=== PATIENT | female | born 1995 | race Caucasian/White ===

== ENCOUNTER 2019-05-18 20:37 | Emergency (ER) | payer BC, SELFPAY ==
[2019-05-18 20:41] VITALS: BP 127/78; PULSE 86; RESP 16; TEMP 37.2; O2SAT 100; BMI 17.2
[2019-05-18 21:16] LABS: Basophils % 0.3 %; Eosinophils # 0.1 10^3/uL (0.0-0.8); Eosinophils % 1.2 %; Hemoglobin 11.3 g/dL (11.5-15.3); Lymphocytes # 2.6 10^3/uL (0.8-4.8); Lymphocytes % 44.5 %; Mean Corpuscular HGB Conc 33.2 g/dL (30.0-36.0); Mean Corpuscular Hemoglobin 30.7 pg (28.0-34.0); Mean Corpuscular Volume 92.4 fL (81-99); Mean Platelet Volume 9.6 fL (7.4-10.4); Monocytes # 0.4 10^3/uL (0.2-0.9); Monocytes % 7.4 %; Neutrophils # 2.7 10^3/uL (1.8-7.7); Neutrophils % 46.6 %; Nucleated Red Blood Cells % 0 %; Platelet Count 226 10^3/cmm (130-400); Red Blood Count 3.68 10^6/uL (4.1-5.3); Red Cell Distribution Width 11.8 % (12.1-15.1); White Blood Count 5.8 10^3/uL (4.0-10.0)
[2019-05-18 21:32] LABS: Alanine Aminotransferase 9 U/L (0-33); Albumin Level 4.7 g/dL (3.5-5.2); Alkaline Phosphatase 52 IU/L (35-105); Anion Gap 12.9 (5-19); Aspartate Amino Transferase 15 U/L (0-32); Blood Urea Nitrogen 8 mg/dL (6-20); Calcium 9.7 mg/dL (8.5-10.5); Carbon Dioxide 26 mmol/L (22-29); Chloride 102 mmol/L (98-107); Globulin 2.3 g/dL (1.3-4.6); Glomerular Filtration Rate 102.8 mL/min (90-130); Glucose 106 mg/dL (74-109); Lipase 20 U/L (13-60); Potassium 3.9 mmol/L (3.5-5.1); Sodium 137 mmol/L (136-145); Total Bilirubin 0.3 mg/dL (0.15-1.2)
[2019-05-18 22:40] LABS: HCG Qualitative Urine. Negative (Negative)
--- NOTE | 2019-05-18 23:08 | CTR_ITS ---
PROCEDURE INFORMATION: Exam: CT Abdomen And Pelvis With Contrast Exam date and time: 05/18/2019 11:51 PM Age: 24 years old Clinical indication: Abdominal pain; Localized; Left lower quadrant (llq); Additional info: Left lower quad pain TECHNIQUE: Imaging protocol: Computed tomography of the abdomen and pelvis with intravenous contrast. Sagittal and coronal reformatted images were created and reviewed. Total DLP: 491.19 mGy-cm Radiation optimization: All CT scans at this facility use at least one of these dose optimization techniques: automated exposure control; mA and/or kV adjustment per patient size (includes targeted exams where dose is matched to clinical indication); or iterative reconstruction. Contrast material: OMNI 300; Contrast volume: 75 ml; Contrast route: 20G; COMPARISON: US pelvic with transvaginal 05/05/2019 3:22 PM FINDINGS: Lungs: Visualized lungs are clear. Pleural space: No pleural effusion. Heart: Visualized portions of the heart are unremarkable. Liver: Periportal edema. No focal hepatic mass. Gallbladder and bile ducts: The gallbladder is unremarkable. No biliary ductal dilatation. Pancreas: The pancreas is unremarkable. No pancreatic ductal dilatation. Spleen: The spleen is unremarkable. Adrenals: The right and left adrenal glands are unremarkable. Kidneys and ureters: The right and left kidneys are unremarkable. The distal right and left ureters are obscured by adjacent bowel loops and soft tissue structures. The visualized portions of the ureters are unremarkable. Stomach and bowel: Increased fecal content in the colon. No acute abnormality in the small bowel. Appendix: Appendix not definitely visualized. No inflammatory changes in the pericecal region however. Intraperitoneal space: No free intraperitoneal air. No ascites. No loculated fluid collections to suggest an abscess. Vasculature: No evidence for aortic aneurysm or aortic dissection. Lymph nodes: No lymphadenopathy. Bladder: Unremarkable as visualized. Reproductive: There is an IUD in the endometrium of the uterus. Dominant follicle in the right ovary measuring 1.8 x 1.6 cm. Multiple subcentimeter follicles in the left ovary. Bones/joints: Unremarkable. No acute fracture. Soft tissues: Unremarkable. CT/CT abdomen pelvis w con* [id number] IMPRESSION: 1. Periportal edema. Differential diagnosis includes systemic volume overload, passive hepatic congestion, and acute hepatitis. Recommend clinical correlation. 2. Dominant follicle in the right ovary. 3. Incidental/nonacute findings are listed in the report. Radiation Dose CTDIVOL = (mGy): DLP = 491.19 (mGy-cm)
--- NOTE | 2019-05-18 23:09 | W.ED.ABDPA2 ---
HPI - Abdominal Pain General: Chief Complaint: Abdominal Pain Stated Complaint: ABCESS LLQ Time Seen by Provider: 05/18/19 23:02 History of Present Illness: HPI narrative: Patient presents with left lower quadrant pain. Patient states that she has a history of celiac disease and endometriosis. Patient is very small framed. Abdomen she reports is tender to the left lower quadrant and patient is concerned that she may have ruptured her bowel. Patient looks chronically ill. Patient looks and mild pain at rest. Location: LLQ Review of Systems General: Reports: 10 or more systems reviewed and unremarkable except in HPI and below GI: Reports: abdominal pain (LLQ) PFS ED PFSH: Statuses (acute, chronic, etc) shown below reflect problem list status as previously entered and may not be historically accurate Medical History (Updated 05/19/19 @ 00:47 by DAVID Paniagua) Arrhythmia (Acute) Episodes of tachycardia Celiac disease (Acute) Surgical History S/P laparoscopy (Acute 12/27/18) Laparoscopy with cautery of ovarian endometriosis. Diagnosis: Endometrioma of right ovary, Lower abdominal/pelvic pain. Performed by Dr. Farshad Ness at [facility] and [place], [place]. Social History (Updated 05/17/19 @ 13:22 by Saskia Wood LPN) Smoking and tobacco status: never smoked Quit status (tobacco): has quit using tobacco Year quit tobacco: 2016 Second hand smoke exposure: No Smoking risk assessment/counseling performed?: No Alcohol intake: current Alcohol intake frequency: holidays/special occasions only Female Reproductive History: Para: 2 Spontaneous abortions: Yes Physical Exam Const: COMMON NORMALS: no apparent distress and oriented x3 GENERAL APPEARANCE: cooperative HENMT: COMMON NORMALS: normocephalic, external ears normal, EAC's normal, TM's normal bilaterally and external nose normal HEAD & SCALP: normal to inspection and normocephalic FACE & SINUS: normal facial exam NOSE: external nose normal GENERAL EAR: hearing not grossly impaired EXTERNAL EAR: Yes external ears normal EXTERNAL AUDITORY CANAL: EAC's normal TYMPANIC MEMBRANE: TM's normal bilaterally MOUTH: oral and palatal mucosa normal THROAT: posterior oropharynx normal Eye: COMMON NORMALS: PERRL and EOMs intact bilaterally PUPIL: Yes PERRL Neck/C-Spine: COMMON NORMALS: full ROM and no lymphadenopathy Lymph: LYMPHATIC: no lymphedema noted Chest: COMMONS NORMALS: inspection of chest normal and palpation of chest normal Resp: COMMON NORMALS: normal respiratory effort and clear to auscultation bilaterally AUSCULTATION: clear to auscultation bilaterally Cardio: COMMON NORMALS: regular rate and regular rhythm RATE: regular rate RHYTHM: regular rhythm GI: COMMON NORMALS: soft to palpation PALPATION: Yes soft and Yes tender Details: LLQ : COMMON NORMALS: Yes no CVA tenderness BLADDER/KIDNEY EXAM: Yes no CVA tenderness Back/Pelvis: COMMON NORMALS: no CVA tenderness and thoracic and lumbar spine normal to inspection Extremity: COMMON NORMALS: normal to inspection GENERAL: No edema Neuro: COMMON NORMALS: oriented x3, moves all extremities and no focal motor deficits Psych: COMMON NORMALS: mental status grossly normal and cooperative Skin: COMMON NORMALS: no rashes or lesions noted GENERAL SKIN EXAM: no rashes or lesions noted Course Vital Signs: Vital signs: Vital Signs Temperature 98.9 F 05/18/19 20:41 Pulse Rate 76 05/18/19 23:15 Respiratory Rate 14 05/19/19 00:23 Blood Pressure 91/54 05/18/19 23:15 Pulse Oximetry 100 05/19/19 00:23 MDM - Abdominal Pain MDM Narrative: Medical decision making narrative: Patient comes in today with complaints of abdominal pain and mass to the left lower quadrant. On exam we note abdomen is tender to the left lower quadrant that has a palpable bowel abnormality. Patient does react that it is very tender. Vital signs are stable. Differential diagnosis includes bowel obstruction, bowel perforation, endometriosis, gastroenteritis, colitis, diverticulitis. CT scan of the abdomen and pelvis noted no bowel obstruction or bowel perforation. No mass or other abnormality was also noted. Laboratory values were were normal. Reviewed exam with patient recommended treatment for constipation and follow-up with primary care for further treatment. Patient reports understanding. Lab Data: Labs: Lab Results 05/18/19 05/18/19 05/18/19 Range/Units 21:02 21:02 22:28 WBC 5.8 (4.0-10.0) 10^3/ uL RBC 3.68 L (4.1-5.3) 10^6/u L Hgb 11.3 L (11.5-15.3) g/dL Hct 34.0 L (37.0-47.0) % MCV 92.4 (81-99) fL MCH 30.7 (28.0-34.0) pg MCHC 33.2 (30.0-36.0) g/dL RDW 11.8 L (12.1-15.1) % Plt Count 226 (130-400) 10^3/c mm MPV 9.6 (7.4-10.4) fL Neut % (Auto) 46.6 % Lymph % (Auto) 44.5 % [place] % (Auto) 7.4 % Eos % (Auto) 1.2 % Baso % (Auto) 0.3 % Neut # (Auto) 2.7 (1.8-7.7) 10^3/u L Lymph # (Auto) 2.6 (0.8-4.8) 10^3/u L [place] # (Auto) 0.4 (0.2-0.9) 10^3/u L Eos # (Auto) 0.1 (0.0-0.8) 10^3/u L Baso # (Auto) 0.0 (0.0-0.1) 10^3/u L Nucleated RBC % (a uto) 0 % Nucleated RBCs # 0.0 /100WBC Sodium 137 (136-145) mmol/L Potassium 3.9 (3.5-5.1) mmol/L Chloride 102 (98-107) mmol/L Carbon Dioxide 26 (22-29) mmol/L Anion Gap 12.9 (5-19) BUN 8 (6-20) mg/dL Creatinine 0.7 (0.5-0.9) mg/dL GFR Calculation 102.8 (90-130) mL/min Glucose 106 (74-109) mg/dL Calcium 9.7 (8.5-10.5) mg/dL Total Bilirubin 0.3 (0.15-1.2) mg/dL AST 15 (0-32) U/L ALT 9 (0-33) U/L Alkaline Phosphata se 52 (35-105) IU/L Total Protein 7.0 (6.6-8.7) g/dL Albumin 4.7 (3.5-5.2) g/dL Globulin 2.3 (1.3-4.6) g/dL Lipase 20 (13-60) U/L HCG, Qual Negative (Negative) Urine Color (Yellow) Urine Appearance (CLEAR) Urine pH (5-7) Ur Specific Gravit y (1.005-1.030) Urine Protein (Negative) Urine Glucose (UA) (Normal) Urine Ketones (Negative) Urine Occult Blood (Negative) Urine Nitrate (Negative) Urine Bilirubin (NEGATIVE) Urine Urobilinogen (Negative) mg/dL Ur Leukocyte Margaret ase (Negative) Urine RBC (0-2) /hpf Urine WBC (0-5) /hpf Ur Squamous Epith Cells (0-5) Urine Bacteria (NONE) 05/18/19 Range/Units 22:28 WBC (4.0-10.0) 10^3/ uL RBC (4.1-5.3) 10^6/u L Hgb (11.5-15.3) g/dL Hct (37.0-47.0) % MCV (81-99) fL MCH (28.0-34.0) pg MCHC (30.0-36.0) g/dL RDW (12.1-15.1) % Plt Count (130-400) 10^3/c mm MPV (7.4-10.4) fL Neut % (Auto) % Lymph % (Auto) % [place] % (Auto) % Eos % (Auto) % Baso % (Auto) % Neut # (Auto) (1.8-7.7) 10^3/u L Lymph # (Auto) (0.8-4.8) 10^3/u L [place] # (Auto) (0.2-0.9) 10^3/u L Eos # (Auto) (0.0-0.8) 10^3/u L Baso # (Auto) (0.0-0.1) 10^3/u L Nucleated RBC % (a uto) % Nucleated RBCs # /100WBC Sodium (136-145) mmol/L Potassium (3.5-5.1) mmol/L Chloride (98-107) mmol/L Carbon Dioxide (22-29) mmol/L Anion Gap (5-19) BUN (6-20) mg/dL Creatinine (0.5-0.9) mg/dL GFR Calculation (90-130) mL/min Glucose (74-109) mg/dL Calcium (8.5-10.5) mg/dL Total Bilirubin (0.15-1.2) mg/dL AST (0-32) U/L ALT (0-33) U/L Alkaline Phosphata se (35-105) IU/L Total Protein (6.6-8.7) g/dL Albumin (3.5-5.2) g/dL Globulin (1.3-4.6) g/dL Lipase (13-60) U/L HCG, Qual (Negative) Urine Color Yellow (Yellow) Urine Appearance Hazy A (CLEAR) Urine pH 6.5 (5-7) Ur Specific Gravit y 1.010 (1.005-1.030) Urine Protein Neg (Negative) Urine Glucose (UA) Norm (Normal) Urine Ketones Negative (Negative) Urine Occult Blood Neg (Negative) Urine Nitrate Negative (Negative) Urine Bilirubin Neg (NEGATIVE) Urine Urobilinogen Norm (Negative) mg/dL Ur Leukocyte Margaret ase Negative (Negative) Urine RBC None (0-2) /hpf Urine WBC None (0-5) /hpf Ur Squamous Epith Cells 40-55 H (0-5) Urine Bacteria 1+ H (NONE) Discharge Plan Discharge Patient Disposition: Home, Self-Care Clinical Impression: Endometriosis of ovary Abdominal pain Qualifiers: Abdominal location: left lower quadrant Qualified Code(s): R10.32 - Left lower quadrant pain Constipation Qualifiers: Constipation type: unspecified constipation type Qualified Code(s): K59.00 - Constipation, unspecified Condition: Stable Prescriptions: New Miralax 17 gram powder in packet 17 gm PO BID Qty: 30 RF: 0 No Action naproxen sodium [Aleve] 220 mg capsule 220 mg PO QDAY PRNRF: 0 lorazepam 0.5 mg tablet 0.5 mg PO QDAY PRNRF: 0 hydrocodone-acetaminophen [[place]] 5-325 mg tablet 1 tab PO Q8H PRN (Reason: pain) 30 Days Qty: 60 RF: 0 amitriptyline 25 mg tablet 25 mg PO QDAY 30 Days Qty: 30 RF: 0 lactulose 10 gram packet 20 gm PO DAILY PRN (Reason: constipation) 30 Days Qty: 15 RF: 0 Mirena 20 mcg/24 hours (5 yrs) 52 mg intrauterine device 1 device INTRAUTERI ONCE RF: 0 ibuprofen 200 mg tablet 200 mg PO Q6H PRNRF: 0 Discharge Orders: Discharge Order (Routine); Ordered 05/19/19 Ordered By: Alexis Nunes Referrals: Leyla Cooper [Family Provider] - Discharge Diet: Usual diet Discharge Activity: Increase activity as tolerated Patient Instructions: Abdominal Pain (ED) Activity Restrictions/Additional Instructions: Drink plenty of fluids Activity as tolerated Healthy diet Follow-up with primary care for further evaluation and treatment Coding Level of Care Code ED 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
[2019-05-18 23:15] VITALS: BP 91/54; PULSE 76; RESP 14; O2SAT 100
[2019-05-18] MEDS: sodium chloride 0.9% 500 ML 999 ML IV (23:20)
[2019-05-19] MEDS: iohexol 300 mg/mL 100 mL Btl IV (00:15)
[2019-05-19 00:22] LABS: Urine Color Yellow (Yellow)
[2019-05-19 00:23] VITALS: RESP 14; O2SAT 100
[2019-05-19 00:23] LABS: Bilirubin Urine Neg (NEGATIVE); Blood Urine Neg (Negative); Glucose Urine UA Norm (Normal); Ketones Urine Negative (Negative); Leukocyte Esterase Urine Negative (Negative); Nitrate Urine Negative (Negative); Protein Urine Neg (Negative); Urine Appearance Hazy (CLEAR); Urobilinogen Urine Norm (Negative); pH Urine 6.5 (5-7)
[2019-05-19] MEDS: fentaNYL 50 mcg/mL INJ 2mL IVP (00:23)
[2019-05-19] MEDS: ketorolac 30 mg/mL INJ 15 MG IVP (00:25)
[2019-05-19 00:50] LABS: Add Urine Culture? No; Bacteria Urine 1+; Squamous Epithelial Cell Urine 40-55 (0-5)
[2019-05-19 00:59] VITALS: BP 95/57; PULSE 68; RESP 18; O2SAT 98
== END 2019-05-19 01:00 | disposition home or self-care (01) ==
PROVIDERS: Emergency Medicine; Emergency Provider Nurse Practitioner Family; Family Provider Registered Nurse
DX: N80.1 Endometriosis of ovary (principal); K59.00 Constipation, unspecified; Z87.891 Personal history of nicotine dependence
CPT/HCPCS: 74177; 80053; 81001; 81025; 83690; 85025; 96360; 96374; 96375; 99283; 99284; J1885; J3010; J7040; Q9967

== ENCOUNTER 2019-06-06 09:02 | Observation (INO) | payer BC, SELFPAY ==
[2019-06-02 12:07] VITALS: BMI 17.6
--- NOTE | 2019-06-02 12:30 | ANES.PREANE2 ---
Pre-Anesthetic Assessment Pre-Anesthetic Assessment: Height/Weight: Height 1.68 m Weight 49.442 kg Preop Diagnosis: Endometriosis, Dysmenorrhea, Left lower quadrant pain Proposed Procedure: Operation Date: 06/06/19 09:45 Proposed Procedures p Laparoscopic Assist Vaginal Hystectomy 92335 N80.1 N94.6(Not Applicable) - Farshad Ness MD s Laparoscopic Salpingo Oophorectomy(Not Applicable) - Farshad Ness MD Social: Social History: No alcohol and No tobacco Exam: Pre-Anes Outpt Exam: alert, oriented x 3, clear to auscultation bilaterally and regular rate & rhythm Airway: Submandibular: WNL Cervical ROM: WNL MP: 2 Dentition: Other (teeth ok) History/ROS: No significant history except as noted Pulmonary: Pulmonary: None reported CV/HEM: CV/HEM: None reported : : None reported Hepatic: Hepatic: None reported GI: GI: GERD (occ) Metabolic: Metabolic: None reported Musc/skel: Musc/skel: None reported Neuropsych: Neuropsych: Anxiety and Depression Anesthetic Plan: ASA status: 2 Anesthesia: Anesthesia Evaluation (PONV) and General Risk of > 500 ml blood loss (7ml/kg in children): No PFSH Anesthesia PFSH: Medical History Arrhythmia Episodes of tachycardia Celiac disease Low bone density Surgical History S/P laparoscopy (12/27/18) Laparoscopy with cautery of ovarian endometriosis. Diagnosis: Endometrioma of right ovary, Lower abdominal/pelvic pain. Performed by Dr. Farshad Ness at [facility] and [place], [place]. Family History Father Hypertension Heart disease Hypercholesteremia Diabetes Brother Heart disease Grandmother Heart disease maternal Mother Uterine cancer diagnosed at age 60 Social History (Updated 06/02/19 @ 10:05 by Farshad Ness MD) Smoking and tobacco status: former smoker Quit status (tobacco): has quit using tobacco Year quit tobacco: 2015 Second hand smoke exposure: No Smoking risk assessment/counseling performed?: No Alcohol intake: current Alcohol intake frequency: holidays/special occasions only Substance/Drug Use: never Female Reproductive History: Para: 2 Spontaneous abortions: Yes Data Anesthesia Cardiac Studies: No Data to Display
[2019-06-02 12:32] LABS: Basophils % 0.4 %; Eosinophils # 0.1 10^3/uL (0.0-0.8); Hematocrit 34.5 % (37.0-47.0); Hemoglobin 11.4 g/dL (11.5-15.3); Lymphocytes # 1.7 10^3/uL (0.8-4.8); Lymphocytes % 32.5 %; Mean Corpuscular Hemoglobin 30.6 pg (28.0-34.0); Mean Corpuscular Volume 92.5 fL (81-99); Mean Platelet Volume 9.3 fL (7.4-10.4); Monocytes # 0.3 10^3/uL (0.2-0.9); Monocytes % 6.1 %; Neutrophils # 3.2 10^3/uL (1.8-7.7); Neutrophils % 59.8 %; Nucleated Red Blood Cells % 0 %; Platelet Count 250 10^3/cmm (130-400); Red Blood Count 3.73 10^6/uL (4.1-5.3); Red Cell Distribution Width 11.7 % (12.1-15.1); White Blood Count 5.3 10^3/uL (4.0-10.0)
[2019-06-06] VITALS (22 sets, daily range): BP systolic 92–133; BP diastolic 45–110; PULSE 64–140; RESP 16–25; TEMP 36.6–37.7; O2SAT 94–100; BMI 17.6
[2019-06-06] MEDS: phenazopyridine 100 mg Tablet 200 MG PO ×3 (06:38→21:02)
[2019-06-06] MEDS: scopolamine 1.5 Patch 1 PATCH TRANSDERMA (06:41)
[2019-06-06] MEDS: sodium chloride 0.9% 1,000 ML 30 ML IV (06:43)
[2019-06-06] MEDS: ketorolac 30 mg/mL INJ IVP ×2 (06:43→12:19)
--- NOTE | 2019-06-06 06:43 | P.ANESUD_ITS ---
Pre-Anesthetic Update Pre-Anesthetic Assessment: Date of Surgery/Procedure: 06/06/19 Preop Sarai gnosis: Endometriosis, Dysmenorrhea, Left lower quadrant pain Proposed Procedure: Operation Date: 06/06/19 07:00 Proposed Procedures p Laparoscopic Assist Vaginal Hystectomy 02383 N80.1 N94.6(Not Applicable) - Farshad Ness MD s Laparoscopic Salpingo Oophorectomy(Not Applicable) - Farshad Ness MD Any changes to Pre-Anesthetic Assessment?: No Last Intake: NPO > 8 hra Exam: Pre-Anes Outpt Exam: alert, oriented x 3, clear to auscultation bilaterally and regular rate & rhythm Cardiac Studies: No Data to Display
--- NOTE | 2019-06-06 06:47 | W.PM.OPSUD ---
Surgery/Procedure H&P Update DATE OF PROCEDURE: June 06, 2019 DATE H&P PERFORMED: 06/02/19 H&P UPDATE INFORMATION: H&P completed within last 30 days, No changes to prior documentation and H&P is in [facility] EMR on date indicated PREOP DIAGNOSIS: Endometriosis, Dysmenorrhea, Left lower quadrant pain PLANNED PROCEDURE: Operation Date: 06/06/19 07:00 Proposed Procedures p Laparoscopic Assist Vaginal Hystectomy 69533 N80.1 N94.6(Not Applicable) - Farshad Ness MD s Laparoscopic Salpingo Oophorectomy(Not Applicable) - Farshad Ness MD
[2019-06-06 06:56] LABS: OR HCG Qualitative Urine Negative (Negative)
[2019-06-06] MEDS: vasopressin 20 unit/mL INJ INJECTION (08:07)
[2019-06-06] MEDS: ondansetron 2 mg/ML SDV 2 mL 4 MG IVP (09:16)
[2019-06-06] MEDS: fentaNYL 50 mcg/mL INJ 2mL IVP ×2 (09:16→09:21)
--- NOTE | 2019-06-06 09:17 | PM.OP ---
Operative Report Date of procedure: June 06, 2019 Pre-op Diagnosis: Endometriosis, Dysmenorrhea, Left lower quadrant pain Post-op Diagnosis: Pelvic and ovarian endometriosis, Dysmenorrhea, Left lower quadrant pain, Enterocele Procedure Done: Laparoscopic assisted vaginal hysterectomy with left salpingo-oophorectomy and right salpingectomy, Cauterization of ovarian endometriosis of the right ovary, Parson's culdoplasty Pathology: Uterus, cervix, left tube and ovary, right fallopian tube Surgeon: Farshad Ness Geography Department Chair: Mike Murrell Geography Department Chair: Leonardo Trejo MS 3 Anesthesia: General Estimated blood loss (mL): 20 IV fluids (mL): 1,500 Complications: None Findings: Second-degree uterine prolapse. Brown, powder burn lesions consistent with endometriosis of the left posterior uterus, left ovary, right ovary, and left posterior cul-de-sac. Normal-appearing fallopian tube. Enterocele identified. Brief History: Patient is a 24-year-old white female 4, para 2-0-2-2 with an LMP of 04/03/2019 who is currently using Mirena IUD for contraception. Patient has had problems with lower abdominal pain which had not responded to hormonal control. She had a laparoscopy in December 2018 which identified ovarian endometrioma. She was then treated with Depo-Lupron and received 1 injection. She had worsening of her pain at approximately 2 weeks after the initial injection which is not uncommon. She did not continue the Depo-Lupron due to problems with insurance coverage of the medication. Because of continued pain afterwards, she has decided proceed with hysterectomy. Removal of 1 or both ovaries was discussed and since most of her pain was on the left side she wanted to go ahead and have the left ovary removed and leave the right ovary if possible. Procedure: The patient was taken to the operating room where general anesthesia was obtained. She was prepped and draped in the usual sterile fashion in the dorsal supine position with legs in Duong style stirrups. Sequential compression boots were placed prior to starting the case. Fung catheter was inserted and exam under anesthesia was performed. She was found to have second-degree uterine prolapse. Weighted speculum was placed in the vagina and the cervix was grasped with a single-tooth tenaculum. A Hulka was placed. The infraumbilical region was injected with 2% lidocaine with epinephrine. Skin incision was made with a knife in the lower edge of the navel and a size 10 trocar and sheath were inserted under direct visualization using an Optiview type technique. Trocar was removed and replaced with just the laparoscope confirming intra-abdominal placement. The anterior abdominal wall was inspected and noted to be free of adhesions. In the right and left lower quadrants, lateral to the inferior epigastric vessels, the skin was injected with 2% lidocaine with epinephrine. Skin incisions were made with the knife and a 5 mm trocar and sheath were inserted under direct visualization at each site. The pelvis was inspected. Brown powder burn lesions consistent with endometriosis were identified on the left posterior surface of the uterus. Powder burn lesions were also noted on the right ovary and left ovaries. Also were present within the left posterior cul-de-sac. She had a normal-appearing appendix. Using the Voyant sealing device, the left infundibulopelvic ligament was sealed and cut. The underlying mesovarium mesosalpinx was sealed and cut until the round ligament was reached.. The round ligament was sealed and cut and the dissection carried along the lateral aspect of the uterus to approximately the level of the internal os. The broad ligament was and the dissection carried over the lower uterine segment. Using the Voyant sealing device, the right mesosalpinx was sealed and cut and the dissection carried along the underlying mesosalpinx until the corner of the uterus was reached. The right utero-ovarian ligament was sealed and cut.. The round ligament was sealed and cut and the dissection carried along the lateral aspect of the uterus to approximately the level of the internal os. The broad ligament was and the dissection carried over the lower uterine segment to meet with the dissection from the contralateral side. The dissection areas were noted to be hemostatic. The abdomen was deflated. The patient's legs were placed in the high lithotomy position. The Hulka was removed and a weighted speculum placed in the vagina. The cervix was regrasped with single-tooth tenaculums. The cervix was circumferentially injected with dilute Pitressin solution. A circumferential incision was made with the knife around the cervix. Bladder was bluntly dissected off of the lower uterine segment. Posterior cul-de-sac was sharply entered and the peritoneum tagged to the vaginal mucosa in the midline. A long weighted retractor was placed in the posterior cul-de-sac. Patient was noted to have an enterocele. The uterosacral ligaments were clamped, cut, and suture ligated with 0 Vicryl suture bilaterally. The cardinal ligaments were clamped, cut, and suture ligated with 0 Vicryl suture bilaterally. The bladder was sharply dissected away from the uterus and the anterior cul-de-sac entered. A long right angle retractor was used to elevate the bladder away from the uterus. The remaining portion of the broad ligament was serially clamped, cut, and suture ligated with 0 Vicryl suture until the uterus was completely excised. The pedicles were inspected and noted to be hemostatic. Posterior edge of the vaginal cuff was oversewn with 0 Vicryl suture in a running locking fashion incorporating the peritoneum to the vaginal mucosa. This extended from the 3:00 position to the 9:00 position posteriorly. Due to the enterocele, decision was made to perform a modified Parson's culdoplasty. Using 0 Vicryl suture, stitch was placed through the posterior cuff at approximately the 5 o'clock position. The left uterosacral ligament was incorporated into the stitch and the posterior peritoneum was picked up in a strafing fashion until the right uterosacral ligament was reached and incorporated into the stitch. Stitch was brought back out through the posterior cuff at approximately the 7 o'clock position. The stitch was then held. The vaginal cuff was closed in a vertical fashion using 0 Vicryl suture in an interrupted [id number] fashion. The uterosacral ligaments and cardinal ligaments were tied in the midline using previously held sutures. The cuff was noted to be hemostatic. The culdoplasty stitch was then tied which elevated the cuff well. The abdomen was reinflated and and the pelvis thoroughly inspected. Patient was noted to have powder burn lesions of the right ovary which were cauterized using monopolar cautery. No areas of residual endometriosis were noted. The areas of dissection were noted to be hemostatic. They were inspected under normal and low pressures. The abdomen was deflated and the ports removed. The 5 mm sites were closed with single stitches of 4-0 Vicryl suture. The umbilical site was closed with a deep stitch of 4-0 Vicryl suture followed by subcuticular closure of the skin. Skin glue was applied to the incision sites. Patient tolerated the procedures well. Sponge needle and instrument counts were correct. DRAINS: Fung catheter POSTOPERATIVE STATUS: The patient was transferred to the recovery room in satisfactory condition.
[2019-06-06] MEDS: morphine 4 mg/mL SDV 1 mL IVP ×2 (10:16→12:18)
[2019-06-06] MEDS: HYDROcodone-acetaminophen 5-325 mg Tablet PO (11:28)
[2019-06-06] MEDS: dextrose 5%-lactated ringers 1,000 ML 125 ML IV (12:09)
[2019-06-06] MEDS: oxyCODONE 5 mg IR Tab/Cap PO (15:11)
[2019-06-06] MEDS: oxyCODONE-APAP 5-325 mg Tablet PO ×2 (16:46→21:02)
[2019-06-06] MEDS: zolpidem 5 mg Tablet 10 MG PO (21:48)
[2019-06-07 01:12] VITALS: RESP 16
[2019-06-07] MEDS: oxyCODONE-APAP 5-325 mg Tablet PO ×3 (01:12→09:43)
[2019-06-07 04:00] VITALS: BP 93/53; PULSE 66; RESP 15; TEMP 36.7; O2SAT 96
[2019-06-07 05:21] VITALS: RESP 16
[2019-06-07 07:20] LABS: Hematocrit 30.1 % (37.0-47.0); Hemoglobin 9.8 g/dL (11.5-15.3); Mean Corpuscular HGB Conc 32.6 g/dL (30.0-36.0); Mean Corpuscular Hemoglobin 30.5 pg (28.0-34.0); Mean Corpuscular Volume 93.8 fL (81-99); Mean Platelet Volume 9.9 fL (7.4-10.4); Platelet Count 192 10^3/cmm (130-400); Red Blood Count 3.21 10^6/uL (4.1-5.3); Red Cell Distribution Width 11.7 % (12.1-15.1); White Blood Count 8.9 10^3/uL (4.0-10.0)
[2019-06-07] MEDS: docusate sodium 100 mg Capsule PO (08:53)
[2019-06-07] MEDS: phenazopyridine 100 mg Tablet 200 MG PO (08:53)
[2019-06-07 09:43] VITALS: RESP 18
--- NOTE | 2019-06-07 11:02 | P.DS_ITS ---
Discharge Providers Date of Admission: 06/06/19 09:02 Date of Discharge: June 07, 2019 Attending Provider at Admission: Farshad Ness MD Attending Provider at Discharge: Farshad Ness MD Diagnoses at Discharge Discharge Diagnosis (1) Endometriosis of ovary: Status: Acute (2) Dysmenorrhea: Status: Acute (3) Left lower quadrant pain: Status: Acute (4) Vaginal enterocele: Status: Resolved Reason for Visit Reason for Visit: Reason For Visit: Endometriosis dysmenorrhea Hospital Course Hospital Course: Patient is a 24-year-old white female 4, para 2-0-2-2 with an LMP of 04/03/2019 who had been using Mirena for control. She has been having problems with lower abdominal pain which has not responded to hormonal control. She had a laparoscopy in December 2018 which identified endometriosis of her ovaries. She was treated with 1 dose of Depo- Lupron, but did not continue it due to insurance reasons. She was not on the Depo-Lupron long enough to know if it would help or not with the pain. Following this, she is continued to have pain and has now decided to proceed with hysterectomy and would like to leave the right ovary if possible. Patient was admitted for same-day surgery and had a laparoscopic assisted vaginal hysterectomy with left salpingo-oophorectomy, right salpingectomy, destruction of endometriosis of the right ovary, and Parson's culdoplasty. During surgery several areas of endometriosis were identified including endometrial implants of the left posterior uterus, left ovary, right ovary, and left posterior cul-de-sac. She was also found during surgery to have an enterocele. Following surgery she had problems with pain requiring parenteral pain medications. Later in the day she had been switched to hydrocodone which did not adequately control her pain and by the evening was switched to oxycodone. Fung catheter was discontinued in the evening and diet was also advanced. DAY 1 Patient was reporting doing better. She stated that the pain had been better controlled with the Percocet than with the [place] from the prior evening. She was tolerating a regular diet without nausea and vomiting. She was ambulating without lightheadedness or dizziness. She denied any shortness of breath or chest pains. She reported passing flatus. She was urinating without difficult y. PHYSICAL EXAM: See below PLAN Patient was doing well overall and was able to be discharged home. Discharge instructions have been discussed with her. She was to follow-up in the office in 2 and 6 weeks following surgery. Physical Exam Const: COMMON NORMALS: no apparent distress, average body habitus, alert and well nourished GENERAL APPEARANCE: well developed ORIENTATION/CONSCIOUSNESS: Yes oriented to person, Yes oriented to place and Yes oriented to time Resp: COMMON NORMALS: normal respiratory effort and clear to auscultation bilaterally AUSCULTATION: clear to auscultation bilaterally Cardio: COMMON NORMALS: regular rate, regular rhythm, no gallops, no murmurs and no rub RATE: regular rate RHYTHM: regular rhythm GI: COMMON NORMALS: soft to palpation, no hepatosplenomegaly and no masses INSPECTION: Yes incision (Well approximated without erythema noted. Bruising present around the navel.) AUSCULTATION: Yes normoactive bowel sounds PALPATION: Yes soft, Yes tender (Lower abdomen), Yes no hepatosplenomegaly and No hernia : EXTERNAL FEMALE EXAM: No hernia Extremity: COMMON NORMALS: no calf tenderness (Bilaterally) Neuro: SENSORIUM/ORIENTATION: Yes alert, Yes oriented to person, Yes oriented to place and Yes oriented to time Psych: COMMON NORMALS: affect normal MOOD & AFFECT: Yes euthymic mood Urinary Catheter Management^: Fung: Cath Placed During This Visit: yes, but has since been removed by the nurse Reason for Continuing Indwelling Catheter: Required Immobilization for Trauma or Surgery or Anesthesia Urinary Catheter Date of Insertion: 06/06/19 Urinary Catheter Time of Insertion: 07:35 Date Urinary Catheter Removed: 06/06/19 Time Urinary Catheter Discontinued: 22:00 Discharge Data Data Completed and Pending: Completed Studies During Hospitalization Category Date Time Status Pathology: Surgic al [PTH] Routine Pth 06/06/19 09:06 Completed Pending at discharge Category Date Time Status ES surgery / GI i mages Routine Exams 06/06/19 06:17 Taken Labs from last 24 hours 06/07/19 07:00 WBC 8.9 RBC 3.21 L Hgb 9.8 L Hct 30.1 L MCV 93.8 MCH 30.5 MCHC 32.6 RDW 11.7 L Plt Count 192 MPV 9.9 Vitals: Last Vital Signs Temp 98.1 F 06/07/19 04:00 Pulse 66 06/07/19 04:00 Resp 18 06/07/19 09:43 BP 93/53 06/07/19 04:00 Pulse Ox 96 06/07/19 04:00 Discharge Plan Discharge Patient Disposition: Home, Self-Care Condition: Stable Prescriptions: New oxycodone-acetaminophen 5-325 mg Tablet 1 - 2 tab PO Q6H PRN (Reason: Moderate To Severe Pain) Qty: 30 RF: 0 Continued naproxen sodium [Aleve] 220 mg capsule 220 mg PO QDAY MDD 220 PRN (Reason: Pain) RF: 0 lorazepam 0.5 mg tablet 0.5 mg PO QDAY PRN (Reason: Anxiety) RF: 0 amitriptyline 25 mg tablet 25 mg PO QDAY 30 Days Qty: 30 RF: 0 lactulose 10 gram packet 20 gm PO DAILY PRN (Reason: constipation) 30 Days Qty: 15 RF: 0 polyethylene glycol 3350 [Miralax] 17 gram powder in packet 17 gm PO BID Qty: 30 RF: 0 Discontinued hydrocodone-acetaminophen [[place]] 5-325 mg tablet 1 tab PO Q8H PRN (Reason: pain) 30 Days Qty: 60 RF: 0 Mirena 20 mcg/24 hours (5 yrs) 52 mg intrauterine device 1 device INTRAUTERI ONCE RF: 0 ibuprofen 200 mg tablet 200 mg PO Q6H MDD 200 PRN (Reason: Pain) RF: 0 Discharge Orders: Discharge Order (Routine); Ordered 06/07/19 Ordered By: Farshad Ness Referrals: Farshad Ness MD [Physician] - 2 weeks (* Your 2 week follow up appointment is on 06/19/2019 at 11:00am. * Your 6 week follow up appointment is on 07/17/2019 at 11:00am. ) Discharge Diet: Regular Discharge Activity: Limit activity as instructed Patient Instructions: Oxycodone/Acetaminophen (By mouth), Laparoscopically Assisted Vaginal Hysterectomy (DC), OB Discharge Report, OB Laproscopic Surgery - [facility], OB Food/Drug Interaction Guide Activity Restrictions/Additional Instructions: Provide my hysterectomy instructions Discharge Date/Time: 06/07/19 12:21 Discharge Attestations Time Spent in Discharge Care*: less than 30 min Quality Metrics Clinical Quality Measures During this hospital stay, did patient experience: None Coding Level of Care Code Acute Hardware Installation Coordinator for g Fwd Diagnoses Endometriosis of ovary N80.1 Dysmenorrhea N94.6 Left lower quadrant pain R10.32 Vaginal enterocele N81.5
[2019-06-07 11:50] VITALS: BP 95/59; PULSE 62; RESP 18; TEMP 36.7
== END 2019-06-07 12:21 | disposition home or self-care (01) ==
LOC: OBGYN 09:03
PROVIDERS: Admitting Provider Obstetrics & Gynecology; Family Provider Registered Nurse; Visit Provider Obstetrics & Gynecology
PROC: 0UT9FZZ Resection of Uterus, Via Natural or Artificial Opening With Percutaneous Endoscopic Assistance (ICD-10-PCS; CPT 57268; principal; 2019-06-06 07:00)
DX: N80.1 Endometriosis of ovary (principal); N94.6 Dysmenorrhea, unspecified; R10.32 Left lower quadrant pain; N81.5 Vaginal enterocele; Z83.3 Family history of diabetes mellitus; Z82.49 Family history of ischemic heart disease and other diseases of the circulatory system; Z87.891 Personal history of nicotine dependence
CPT/HCPCS: 57268; 58552; 58662; 12345; 36415; 81025; 84703; 85025; 85027; 86850; 86900; 88307; 96361; 96374; 96375; G0378; J0690; J1100; J1885; J2001; J2250; J2270; J2405; J2704; J2710; J3010; J3490; J7030

== ENCOUNTER → 2019-06-19 12:05 | Outpatient (BNVA) | payer BC, SELFPAY | PROVIDERS: Family Provider Registered Nurse; Visit Provider Obstetrics & Gynecology | DX: R30.0 Dysuria (principal) | CPT/HCPCS: 81003; 87086 ==

== ENCOUNTER → 2019-07-26 18:24 | Outpatient (BNVA) | payer BC, SELFPAY | PROVIDERS: Family Provider Registered Nurse; Visit Provider Family Medicine | DX: R05 Cough (principal); R06.02 Shortness of breath; Z20.828 Contact with and (suspected) exposure to other viral communicable diseases | CPT/HCPCS: 87071; 87400; 87635; 87880 ==

== ENCOUNTER → 2019-08-15 13:02 | Outpatient (BNVA) | payer BC, SELFPAY | PROVIDERS: Family Provider Registered Nurse; PCP Family Medicine; Visit Provider Anesthesiology Pain Medicine | DX: M54.16 Radiculopathy, lumbar region (principal); M25.561 Pain in right knee; Z79.891 Long term (current) use of opiate analgesic | CPT/HCPCS: 99204; 99205 ==

== ENCOUNTER 2019-09-12 15:06 | Outpatient (CLI) | payer BC, SELFPAY ==
--- NOTE | 2019-09-12 15:15 | MR_ITS ---
WS: [id number] MRI LUMBAR SPINE NONCONTRAST HISTORY: radicular pain COMPARISON: None available. TECHNIQUE: Sagittal and axial multisequence imaging is submitted. Very slight straightening of the normal lordosis. Posterior alignment is normal. No fractures. Disc s paces are well-maintained. Conus tapers and ends at L1-2 level. Disc spaces and vertebral body heights are well-preserved. Conus terminates normally at L1-2 disc level. L1-L2: Normal. L2-L3: Normal. L3-L4: Normal. L4-L5: Slight posterior broad-based bulging of the disc. Mild contact and narrowing the subarticular recesses. Small amount of fluid in the facet joints bilaterally. Very slight encroachment and narrowi ng of the foramen. L5-S1: Mild broad based disc bulging posteriorly without stenosis. MR/MR lumbar spine wo con* [id number] IMPRESSION: 1. Very mild facet degenerative changes and foraminal narrowing at L4-5 and L5 -S1. 2. No large disc herniations or significant stenosis.
== END 2019-09-12 15:07 | disposition home or self-care (01) ==
LOC: RADSHAW 15:09
PROVIDERS: PCP Family Medicine; Visit Provider Anesthesiology Pain Medicine
DX: M54.16 Radiculopathy, lumbar region (principal)
CPT/HCPCS: 72148

== ENCOUNTER → 2019-09-13 09:23 | Outpatient (BNVA) | payer BC, SELFPAY | PROVIDERS: PCP Family Medicine; Visit Provider Anesthesiology Pain Medicine | DX: M47.816 Spondylosis without myelopathy or radiculopathy, lumbar region (principal); M54.16 Radiculopathy, lumbar region; M25.561 Pain in right knee; M25.562 Pain in left knee; M25.511 Pain in right shoulder; M25.512 Pain in left shoulder; M25.9 Joint disorder, unspecified; M25.50 Pain in unspecified joint; Z79.891 Long term (current) use of opiate analgesic | CPT/HCPCS: 99214 ==

== ENCOUNTER 2022-04-26 16:19 | Emergency (ER) | payer BC, SELFPAY ==
[2022-04-26 16:33] VITALS: BP 113/73; PULSE 104; RESP 16; TEMP 36.8; O2SAT 100
--- NOTE | 2022-04-26 16:39 | CTR_ITS ---
PROCEDURE INFORMATION: Exam: CT Abdomen And Pelvis With Contrast Exam date and time: 04/26/2022 5:22 PM Age: 27 years old Clinical indication: Abdominal pain; Localized; Right lower quadrant (rlq); Prior surgery; Surgery date: 6+ months; Surgery type: Hyster; Additional info: Rlq abdominal pain TECHNIQUE: Imaging protocol: Computed tomography of the abdomen and pelvis with contrast. Radiation optimization: All CT scans at this facility use at least one of these dose optimization techniques: automated exposure control; mA and/or kV adjustment per patient size (includes targeted exams where dose is matched to clinical indication); or iterative reconstruction. Contrast material: OMNI 350; Contrast volume: 100 ml; Contrast route: INTRAVENOUS (IV); COMPARISON: CT abdomen pelvis w con* [id number] 05/19/2019 12:25 AM RADIATION DOSE METRICS: Total DLP (mGy-cm): 344.72 FINDINGS: Liver: Normal. No mass. Gallbladder and bile ducts: Normal. No calcified stones. No ductal dilation. Pancreas: Normal. No ductal dilation. Spleen: Normal. No splenomegaly. Adrenal glands: Normal. No mass. Kidneys and ureters: Normal. No hydronephrosis. Stomach and bowel: There is a large amount of stool in the proximal colon particularly in the cecum and proximal ascending colon. Fecal appearing content is present in the distal small bowel consistent with stasis. Appendix: Appendix not definitely visualized. There are no right lower quadrant inflammatory changes seen. Intraperitoneal space: Unremarkable. No free air. No significant fluid collection. Vasculature: Unremarkable. No abdominal aortic aneurysm. Lymph nodes: Unremarkable. No enlarged lymph nodes. Urinary bladder: Unremarkable as visualized. Reproductive: The uterus is not visualized, consistent with hysterectomy. Bones/joints: Unremarkable. No acute fracture. Soft tissues: Unremarkable. CT/CT abdomen pelvis w con* [id number] IMPRESSION: 1. There is proximal colonic constipation. Fecal appearing content in the distal small bowel is consistent with stasis. 2. Appendix not definitely visualized. There are no right lower quadrant inflammatory changes seen.
--- NOTE | 2022-04-26 16:40 | W.ED.ABDPA2 ---
HPI - Abdominal Pain General: Chief Complaint: Abdominal Pain Stated Complaint: ABD PAIN Time Seen by Provider: 04/26/22 16:24 History of Present Illness: Patient is a 27-year-old female comes to the ED via EMS with abdominal pain. Symptoms started approximately 1 hour ago. She says she was getting up from a sitting position and felt a pop in her right lower quadrant of her abdomen. She now has 10 out of 10 pain in her right lower quadrant. Past surgical history of hysterectomy but patient's appendix and gallbladder still present. Denies any fevers, nausea/vomiting, bladder or bowel symptoms. EMS gave patient 100 MCG's of fentanyl and 4 mg of Zofran while in route. Associated Symptoms: Denies chills, constipation, diarrhea, dysuria, fever(s), hematochezia, hematuria, nausea and vomiting Review of Systems Const: Denies: fever(s), chills or fatigue Eyes: Denies: change in vision or eye discomfort ENMT: Denies: throat pain, odynophagia, nasal discharge or nasal congestion Card: Denies: chest pain, palpitations, edema, swelling of feet/ankles, dyspnea on exertion or orthopnea Resp: Denies: dyspnea, productive cough or non-productive cough GI: Reports: abdominal pain; Denies: nausea, vomiting, diarrhea, constipation or hematochezia : Denies: flank pain, dysuria or hematuria Musc: Denies: neck pain, back pain or extremity swelling Skin/Breast: Denies: rash or new lesions Neuro: Denies: headache(s), numbness in extremities or weakness in extremities PFS ED PFSH: Medical History (Updated 04/26/22 @ 18:23 by BETINA Guillen) Arrhythmia Episodes of tachycardia Celiac disease Low bone density Surgical History History of laparoscopic-assisted vaginal hysterectomy (06/06/19) With LSO and right salpingectomy, cautery endometriosis, Parson's culdoplasty. Dx: Pelvic & ovarian endometriosis, Dysmenorrhea, LLQ pain, Enterocele. Performed by Dr. Ness at [facility]. S/P laparoscopy (12/27/18) With cautery of ovarian endometriosis. Dx: Endometrioma of right ovary, Lower abdominal/pelvic pain. Performed by Dr. Ness at [facility] in [place], [place]. Family History Father Hypertension Heart disease Hypercholesteremia Diabetes Brother Heart disease Grandmother Heart disease maternal Mother Uterine cancer diagnosed at age 60 Social History Smoking and tobacco status: former smoker Quit status (tobacco): has quit using tobacco Year quit tobacco: 2016 Alcohol intake: current Alcohol intake frequency: holidays/special occasions only Female Reproductive History: Para: 2 Spontaneous abortions: Yes Physical Exam Const: COMMON NORMALS: patient oriented x3 and alert GENERAL APPEARANCE: cooperative and other (Patient crying due to pain) HENMT: COMMON NORMALS: normocephalic HEAD & SCALP: normocephalic MOUTH: Normal oral and palatal mucosa present THROAT: posterior oropharynx normal and uvula midline Neck/C-Spine: COMMON NORMALS: supple GENERAL: Yes normal visual inspection Resp: COMMON NORMALS: normal respiratory effort, No retractions, No use of accessory muscles and clear to auscultation bilaterally AUSCULTATION: clear to auscultation bilaterally Cardio: COMMON NORMALS: regular rate, regular rhythm, S1 normal heart sound present, S2 normal heart sound present, No gallops present (Cardio), No clicks present (Cardio), No murmurs present (Cardio) and Peripheral pulses 2+ throughout RATE: regular rate RHYTHM: regular rhythm HEART SOUNDS: S1 normal heart sound present and S2 normal heart sound present PERIPHERAL PULSES: Peripheral pulses 2+ throughout GI: COMMON NORMALS: Normal to inspection, nondistended, normoactive bowel sounds present, Soft to palpation and no masses PALPATION: Yes Soft to palpation and Yes Tenderness to palpation present (GI) Details: RLQ (Positive McBurney's point tenderness) : COMMON NORMALS: Yes no CVA tenderness BLADDER/KIDNEY EXAM: Yes no CVA tenderness Back/Pelvis: COMMON NORMALS: no CVA tenderness Extremity: COMMON NORMALS: normal to inspection Neuro: COMMON NORMALS: patient oriented x3 SENSORIUM/ORIENTATION: Yes alert GAIT: Yes Normal gait present Skin: GENERAL SKIN EXAM: dry skin Course Vital Signs: Vital signs: Vital Signs Temperature 98.2 F 04/26/22 16:33 Pulse Rate 87 04/26/22 18:20 Respiratory Rate 14 04/26/22 18:20 Blood Pressure 115/74 04/26/22 18:20 Pulse Oximetry 98 04/26/22 18:20 Oxygen Delivery Me thod 04/26/22 18:20 MDM - Abdominal Pain Medical Decision Making Patient is a 27-year-old female comes to the ED with right lower quadrant abdominal pain. Past surgical history of hysterectomy. Vitals are stable. Patient appears in some pain and is crying upon exam. She does have some right lower quadrant tenderness to palpation. Rest of exam is benign. Labs ordered and pending. CT of abdomen is ordered and pending as well. Patient case transferred over to [facility] at [address] of the abdomen pelvis showed constipation and no other acute findings. Labs are unremarkable. Patient discharged home with a prescription for senna and told to follow-up with PCP in the next week for reevaluation. Lab Data I reviewed the patient's lab results. 04/26/22 16:40 04/26/22 16:40 Labs/Radiology: Radiology Impressions Abdomen/Pelvis CT 04/26/22 16:39 IMPRESSION: 1. There is proximal colonic constipation. Fecal appearing content in the distal small bowel is consistent with stasis. 2. Appendix not definitely visualized. There are no right lower quadrant inflammatory changes seen. Laboratory Results WBC 10.8 10^3/uL (4.0-10.0) H 04/26/22 16:40 RBC 3.89 10^6/uL (4.1-5.3) L 04/26/22 16:40 Hgb 12.1 g/dL (11.5-15.3) 04/26/22 16:40 Hct 36.9 % (37.0-47.0) L 04/26/22 16:40 MCV 94.9 fl (81-99) 04/26/22 16:40 MCH 31.1 pg (28.0-34.0) 04/26/22 16:40 MCHC 32.8 g/dL (30.0-36.0) 04/26/22 16:40 RDW 13.2 % (12.1-15.1) 04/26/22 16:40 Plt Count 297 10^3/cmm (130-400) 04/26/22 16:40 MPV 9.3 fL (7.4-10.4) 04/26/22 16:40 Neut % (Auto) 62.9 % 04/26/22 16:40 Lymph % (Auto) 30.2 % 04/26/22 16:40 Noble % (Auto) 6.4 % 04/26/22 16:40 Eos % (Auto) 0.0 % 04/26/22 16:40 Baso % (Auto) 0.2 % 04/26/22 16:40 Neut # (Auto) 6.80 10^3/uL (1.8-7.7) 04/26/22 16:40 Lymph # (Auto) 3.3 10^3/uL (0.8-4.8) 04/26/22 16:40 Noble # (Auto) 0.7 10^3/uL (0.2-0.9) 04/26/22 16:40 Eos # (Auto) 0.0 10^3/uL (0.0-0.8) 04/26/22 16:40 Baso # (Auto) 0.0 10^3/uL (0.0-0.1) 04/26/22 16:40 Nucleated RBC % (auto) 0 % 04/26/22 16:40 Nucleated RBCs # 0.0 /100WBC 04/26/22 16:40 Sodium 140 mmol/L (136-145) 04/26/22 16:40 Potassium 3.3 mmol/L (3.5-5.1) L 04/26/22 16:40 Chloride 106 mmol/L (98-107) 04/26/22 16:40 Carbon Dioxide 22 mmol/L (22-29) 04/26/22 16:40 Anion Gap 15.3 (5-19) 04/26/22 16:40 BUN 17 mg/dL (6-20) 04/26/22 16:40 Creatinine 0.6 mg/dL (0.5-0.9) 04/26/22 16:40 GFR Calculation 119.9 mL/min (90-130) 04/26/22 16:40 Glucose 52 mg/dL (65-115) L 04/26/22 16:40 Calculated Osmolality 289 mOsm/kg (285-295) 04/26/22 16:40 Calcium 9.2 mg/dL (8.5-10.5) 04/26/22 16:40 Total Bilirubin 0.2 mg/dL (0.15-1.2) 04/26/22 16:40 AST 18 U/L (0-32) 04/26/22 16:40 ALT 13 U/L (0-33) 04/26/22 16:40 Alkaline Phosphatase 101 U/L (35-105) 04/26/22 16:40 Total Protein 6.9 g/dL (6.6-8.7) 04/26/22 16:40 Albumin 4.6 g/dL (3.5-5.2) 04/26/22 16:40 Globulin 2.3 g/dL (1.3-4.6) 04/26/22 16:40 Lipase 23 U/L (13-60) 04/26/22 16:40 HCG, Qual Negative (Negative) 04/26/22 16:40 Urine Color Yellow (Yellow) 04/26/22 18:03 Urine Appearance Clear (CLEAR) 04/26/22 18:03 Urine pH 7 (5-7) 04/26/22 18:03 Ur Specific Ross 1.010 (1.005-1.030) 04/26/22 18:03 Urine Protein Neg (Negative) 04/26/22 18:03 Urine Glucose (UA) Norm (Normal) 04/26/22 18:03 Urine Ketones Negative (Negative) 04/26/22 18:03 Urine Blood Neg (Negative) 04/26/22 18:03 Urine Nitrate Negative (Negative) 04/26/22 18:03 Urine Bilirubin Neg (Negative) 04/26/22 18:03 Urine Urobilinogen Norm mg/dL (Negative) 04/26/22 18:03 Ur Leukocyte Esterase Negative (Negative) 04/26/22 18:03 Discharge Plan Discharge Patient Disposition: Home Clinical Impression: Constipation Condition: Stable Prescriptions: New senna 8.6 mg tablet 8.6 mg PO BID PRN (Reason: constipation) Qty: 20 0RF No Action naproxen 500 mg tablet 500 mg PO BID PRN Rx Instructions: USUALLY JUST TAKES AT NOC lorazepam [Ativan] 0.5 mg tablet 0.5 mg PO .1 day PRN gabapentin 600 mg tablet 600 mg PO TID Qty: 90 0RF oxycodone-acetaminophen 5-325 mg tablet 1 tab PO BID MDD 2 PRN (Reason: chronic pain) 30 Days Qty: 20 0RF Rx Instructions: may fill 30 days after previous refill duloxetine 20 mg capsule,delayed release(DR/EC) 20 mg PO BID Qty: 60 0RF Discharge Orders: Discharge ED (Routine); Ordered 04/26/22 Ordered By: Fadia Cosme Referrals: Logan Camara MD [Primary Care Provider] - Activity Restrictions/Additional Instructions: Lab work today showed no acute concerns for any infection or other abnormality. CT examination revealed a significant amount of retained stool throughout your colon-especially large amount in your right lower quadrant. While your rectal vault does not appear full, I suspect it will take a couple of days to fully empty your colon-even with medication. Unfortunately, this medication can also cause generalized cramping in your abdomen to help stimulate the muscles of the colon to push the stool forward. We encourage you to drink lots of clear fluids-avoid anything caffeinated at this time. I suspect that the first stooling you will have will be small ball-like stools which can sometimes be difficult to pass however, the stool in your right lower quadrant appears to be more confluent and with medication, may pass a bit more easily. If you begin vomiting or unable to take medication or stay hydrated you need to return here to the emergency department. Sign Out Sign Out Data: Patient Sign Out occurred on 04/26/22 at 17:17. Patient's care was discussed, and care was transferred from to BETINA Guillen. Post-Handoff Eval: Patient's remaining lab work came back otherwise unremarkable. CT examination revealed a significant amount of retained stool-especially in the right lower quadrant region. Discussed all of this with the patient. Patient reports she has a long history of issues with constipation. Explained her that the pain medication provided to her can actually complicate her constipation and even though we are going to give her stimulant laxative, needs to stay well-hydrated and could expect more abdominal cramping the next couple of days. Patient has ball-like stools noted from the sigmoid colon up to the splenic flexure and mention this to her so she is aware when she is starting to pass stool. Patient was told to return to the emergency department if she is unable to take her medications or stay hydrated. Otherwise, she can follow-up with her primary care doctor for issues with recurrent constipation. Coding Level of Care Code ED Termite Inspector for Chg Fwd Exam Comprehensive
[2022-04-26 16:49] LABS: Basophils % 0.2 %; Hematocrit 36.9 % (37.0-47.0); Hemoglobin 12.1 g/dL (11.5-15.3); Lymphocytes # 3.3 10^3/uL (0.8-4.8); Lymphocytes % 30.2 %; Mean Corpuscular HGB Conc 32.8 g/dL (30.0-36.0); Mean Corpuscular Hemoglobin 31.1 pg (28.0-34.0); Mean Corpuscular Volume 94.9 fl (81-99); Mean Platelet Volume 9.3 fL (7.4-10.4); Monocytes # 0.7 10^3/uL (0.2-0.9); Monocytes % 6.4 %; Neutrophils % 62.9 %; Nucleated Red Blood Cells % 0 %; Platelet Count 297 10^3/cmm (130-400); Red Blood Count 3.89 10^6/uL (4.1-5.3); Red Cell Distribution Width 13.2 % (12.1-15.1); White Blood Count 10.8 10^3/uL (4.0-10.0)
[2022-04-26 16:57] VITALS: RESP 14; O2SAT 99
[2022-04-26] MEDS: morphine 4 mg/mL SDV 1 mL IVP (16:57)
[2022-04-26] MEDS: sodium chloride 0.9% 500 ML 999 ML IV (16:58)
[2022-04-26 17:10] LABS: HCG, Serum Qual Negative (Negative)
[2022-04-26 17:15] LABS: Alanine Aminotransferase 13 U/L (0-33); Albumin Level 4.6 g/dL (3.5-5.2); Alkaline Phosphatase 101 U/L (35-105); Anion Gap 15.3 (5-19); Aspartate Amino Transferase 18 U/L (0-32); Blood Urea Nitrogen 17 mg/dL (6-20); Calcium 9.2 mg/dL (8.5-10.5); Carbon Dioxide 22 mmol/L (22-29); Chloride 106 mmol/L (98-107); Globulin 2.3 g/dL (1.3-4.6); Glomerular Filtration Rate 119.9 mL/min (90-130); Glucose 52 mg/dL (65-115); Lipase 23 U/L (13-60); Osmolality Calculated 289 mOsm/kg (285-295); Potassium 3.3 mmol/L (3.5-5.1); Sodium 140 mmol/L (136-145); Total Bilirubin 0.2 mg/dL (0.15-1.2); Total Protein 6.9 g/dL (6.6-8.7)
[2022-04-26 17:40] VITALS: BP 122/83; PULSE 93; RESP 14; O2SAT 97
[2022-04-26 18:10] LABS: Add Urine Microscopic? NO; Charge for UA Resulting for Rev
[2022-04-26 18:20] VITALS: BP 115/74; PULSE 87; RESP 14; O2SAT 98
[2022-04-26 18:30] LABS: Bilirubin Urine Neg (Negative); Blood Urine Neg (Negative); Glucose Urine UA Norm (Normal); Ketones Urine Negative (Negative); Leukocyte Esterase Urine Negative (Negative); Nitrate Urine Negative (Negative); Protein Urine Neg (Negative); Urine Appearance Clear (CLEAR); Urine Color Yellow (Yellow); Urobilinogen Urine Norm (Negative); pH Urine 7 (5-7)
== END 2022-04-26 18:57 | disposition home or self-care (01) ==
PROVIDERS: Physician Assistant; Emergency Provider Physician Assistant; PCP Family Medicine
DX: K59.00 Constipation, unspecified (principal); Z87.891 Personal history of nicotine dependence
CPT/HCPCS: 74177; 80053; 81003; 83690; 84703; 85025; 96374; 99285; J2270; J7040; Q9967

== ENCOUNTER 2022-07-07 13:25 | Emergency (ER) | payer SELFPAY ==
[2022-07-07 13:35] VITALS: BP 122/84; PULSE 98; RESP 16; TEMP 36.6; O2SAT 100
--- NOTE | 2022-07-07 13:59 | ED_ITS ---
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 Patient states she has pain with deep inhalation and movement. She denies shortness of breath or difficulty breathing. MD complaint: chest pain Onset (ago): hour(s) Prior episodes: No Pain location: right chest Pain radiation: none Severity: moderate Exacerbating factors: inspiration and movement Context: trauma/injury Associated symptoms: Deny abdominal pain, dyspnea, fever(s), palpitations or syncope Treatment prior to arrival: none Risk Factors: Coronary artery disease risk factors: none Thoracic aortic dissection risk factors: none Review of Systems Const: Denies: fever(s), chills, body aches, fatigue or malaise Card: Reports: chest pain; Denies: palpitations, irregular heart rhythm, edema, swelling of feet/ankles, lightheadedness, syncope, pre-syncope, dyspnea on exertion, orthopnea, leg pain with exertion or acrocyanosis Resp: Reports: pain on inspiration; Denies: dyspnea, productive cough, non-productive cough, wheezing, change in phlegm color, hemoptysis or chest congestion GI: Denies: abdominal pain : Denies: flank pain, dysuria or hematuria Musc: Denies: neck pain, back pain, extremity pain or joint pain Skin/Breast: Denies: rash Neuro: Denies: numbness in extremities, weakness in extremities, sensory changes or dizziness PFS ED PFSH: Medical History Arrhythmia Episodes of tachycardia Celiac disease Low bone density Surgical History History of laparoscopic-assisted vaginal hysterectomy (06/06/19) With LSO and right salpingectomy, cautery endometriosis, Parson's c uldoplasty. Dx: Pelvic & ovarian endometriosis, Dysmenorrhea, LLQ pain, Enterocele. Performed by Dr. Ness at [facility] [place]. S/P laparoscopy (12/27/18) With cautery of ovarian endometriosis. Dx: Endometrioma of right ovary, Lower abdominal/pelvic pain. Performed by Dr. Ness at [facility] [place] in [place], [place]. Family History Father Hypertension Heart disease Hypercholesteremia Diabetes Brother Heart disease Grandmother Heart disease maternal Mother Uterine cancer diagnosed at age 60 Social History Smoking and tobacco status: former smoker Quit status (tobacco): has quit using tobacco Year quit tobacco: 2016 Alcohol intake: current Alcohol intake frequency: holidays/special occasions only Female Reproductive History: Para: 2 Spontaneous abortions: Yes Physical Exam Const: COMMON NORMALS: average body habitus, patient oriented x3, no limitations, healthy appearing, alert and well nourished GENERAL APPEARANCE: cooperative and in distress (appears uncomfortable secondary to pain) ORIENTATION/CONSCIOUSNESS: Yes awake, Yes oriented to person, Yes oriented to place and Yes oriented to time HENMT: COMMON NORMALS: normocephalic and atraumatic HEAD & SCALP: normal to inspection, normocephalic and atraumatic Chest: COMMONS NORMALS: normal inspection of the chest OTHER: TTP R lateral ribs; no crepitus; normal lung sounds Resp: COMMON NORMALS: normal respiratory effort and clear to auscultation bilaterally AUSCULTATION: clear to auscultation bilaterally Cardio: COMMON NORMALS: regular rate and regular rhythm RATE: regular rate RHYTHM: regular rhythm GI: COMMON NORMALS: Normal to inspection, nondistended, normoactive bowel sounds present, Soft to palpation and non-tender PALPATION: Yes Soft to palpation Neuro: COMMON NORMALS: patient oriented x3 SENSORIUM/ORIENTATION: Yes alert, Yes oriented to person, Yes oriented to place and Yes oriented to time Course Vital Signs: Vital signs: Vital Signs Temperature 97.9 F 07/07/22 13:35 Pulse Rate 98 07/07/22 13:35 Respiratory Rate 18 07/07/22 14:20 Blood Pressure 122/84 07/07/22 13:35 Pulse Oximetry 100 07/07/22 13:35 Oxygen Delivery Me thod 07/07/22 13:35 MDM - Chest Pain Medical Decision Making XR negative. Recommend ice/heat/NSAIDs. Follow-up with primary care in 1 to 2 weeks if symptoms not seem to be improving. Lab Data Radiology Impressions Ribs X-Ray 07/07/22 14:09 Impression: Negative chest with right rib detail. Discharge Plan Discharge Patient Disposition: Home Clinical Impression: Right-sided chest wall pain Condition: Stable Prescriptions: No Action naproxen 500 mg tablet 500 mg PO BID PRN Rx Instructions: USUALLY JUST TAKES AT NOC lorazepam [Ativan] 0.5 mg tablet 0.5 mg PO .1 day PRN gabapentin 600 mg tablet 600 mg PO TID Qty: 90 0RF oxycodone-acetaminophen 5-325 mg tablet 1 tab PO BID MDD 2 PRN (Reason: chronic pain) 30 Days Qty: 20 0RF Rx Instructions: may fill 30 days after previous refill duloxetine 20 mg capsule,delayed release(DR/EC) 20 mg PO BID Qty: 60 0RF senna 8.6 mg tablet 8.6 mg PO BID PRN (Reason: constipation) Qty: 20 0RF Discharge Orders: Discharge ED (Routine); Ordered 07/07/22 Ordered By: Arcelia Corado Patient Instructions: Chest Pain - Chest Wall, Chest Wall Pain (ED) Coding Level of Care Code ED Asset Protection Assistant for Benjamin Peters
--- NOTE | 2022-07-07 14:09 | XR_ITS ---
WS: [id number] Chest with right rib detail, 5 views, 07/07/2022 Clinical Data: pain/injury Comparison: Two-view chest, 07/25/2015. Findings: The lungs show no nodules, masses, or effusions. The heart is normal. No pneumonia or pneumothorax is seen. The ribs are intact. No rib fractures seen. No subcutaneous emphysema is present. XR/XR ribs RT mn 3V w CXR1V [id number] Impression: Negative chest with right rib detail.
[2022-07-07 14:20] VITALS: RESP 18
[2022-07-07] MEDS: morphine 4 mg/mL SDV 1 mL IM (14:20)
[2022-07-07 15:07] VITALS: BP 107/66; PULSE 86; RESP 18; O2SAT 97
--- NOTE | 2022-07-10 13:09 | DCPLANNER ---
Addendum entered by Emmanuelle Crandall 07/10/22 13:20: Patient called clinical case manager back - patient declines at this time for help in getting established with a primary care physician Original Note: clinical case manager called patient due to no primary care physician - no answer at this time
== END 2022-07-07 15:09 | disposition home or self-care (01) ==
PROVIDERS: Emergency Provider Physician Assistant
DX: R07.89 Other chest pain (principal); Z87.891 Personal history of nicotine dependence
CPT/HCPCS: 71101; 96372; 99284; J2270

== ENCOUNTER 2022-07-09 15:39 | Emergency (ER) | payer SELFPAY ==
[2022-07-09] VITALS (16 sets, daily range): BP systolic 117–160; BP diastolic 65–109; PULSE 0–103; RESP 15–37; TEMP 36.8; O2SAT 98–100; BMI 21.9
--- NOTE | 2022-07-09 16:47 | W.ED.ABDPA2 ---
HPI - Abdominal Pain General: Chief Complaint: Abdominal Pain Stated Complaint: abd pain Time Seen by Provider: 07/09/22 16:31 History of Present Illness: Patient comes in with abdominal pain. She describes it as left-sided, constant, sharp, started 2 hours prior to arrival. States this is the worst pain she is ever felt. Patient is tearful throughout exam. Patient has a long history of chronic abdominal pain. She states this is different than her normal abdominal pain. She was seen here 2 months ago for similar complaints with a similar presentation at which time her work-up was unremarkable. The patient states that this is different because it is worse. Denies fever, diarrhea, or vomiting. States she does have nausea. Patient has a history of endometriosis status post hysterectomy. She states they took her uterus and one of her ovaries. Associated Symptoms: Reports nausea; Denies dysuria, fever(s) and vomiting Review of Systems Const: Denies: fever(s) or body aches Eyes: Denies: change in vision or blurry vision ENMT: Denies: throat pain or odynophagia Card: Denies: chest pain or palpitations Resp: Denies: dyspnea or productive cough GI: Reports: abdominal pain and nausea; Denies: vomiting : Denies: flank pain or dysuria Musc: Denies: neck pain or back pain Skin/Breast: Denies: rash or pruritus Neuro: Denies: headache(s) or numbness in extremities Psych: Denies: anxiety or change in appetite Endo: Denies: polyuria or excessive sweating PFSH ED PFSH: Medical History Arrhythmia Episodes of tachycardia Celiac disease Low bone density Surgical History History of laparoscopic-assisted vaginal hysterectomy (06/06/19) With LSO and right salpingectomy, cautery endometriosis, Parson's culdoplasty. Dx: Pelvic & ovarian endometriosis, Dysmenorrhea, LLQ pain, Enterocele. Performed by Dr. Ness at [facility] [place]. S/P laparoscopy (12/27/18) With cautery of ovarian endometriosis. Dx: Endometrioma of right ovary, Lower abdominal/pelvic pain. Performed by Dr. Ness at [facility] [place] in [place], [place]. Family History Father Hypertension Heart disease Hypercholesteremia Diabetes Brother Heart disease Grandmother Heart disease maternal Mother Uterine cancer diagnosed at age 60 Social History Smoking and tobacco status: former smoker Quit status (tobacco): has quit using tobacco Year quit tobacco: 2016 Alcohol intake: current Alcohol intake frequency: holidays/special occasions only Female Reproductive History: Para: 2 Spontaneous abortions: Yes Physical Exam Const: COMMON NORMALS: patient oriented x3, healthy appearing and alert HENMT: COMMON NORMALS: normocephalic and atraumatic HEAD & SCALP: normocephalic and atraumatic Eye: COMMON NORMALS: Equal, round and reactive pupils present and EOMs intact bilaterally PUPIL: Yes Equal, round and reactive pupils present Neck/C-Spine: COMMON NORMALS: full ROM and supple Resp: COMMON NORMALS: normal respiratory effort, No retractions and No use of accessory muscles Cardio: COMMON NORMALS: regular rate and regular rhythm RATE: regular rate RHYTHM: regular rhythm GI: COMMON NORMALS: Normal to inspection, nondistended, normoactive bowel sounds present and Soft to palpation PALPATION: Yes Soft to palpation OTHER: abdomen is soft, nondistended. She has generalized severe tenderness to very light palpation that is distractible. Back/Pelvis: COMMON NORMALS: thoracic and lumbar spine normal to inspection and no thoracic nor lumbar tenderness Extremity: COMMON NORMALS: normal to inspection and full ROM Neuro: COMMON NORMALS: patient oriented x3 SENSORIUM/ORIENTATION: Yes alert Psych: COMMON NORMALS: mental status grossly normal and cooperative Skin: COMMON NORMALS: no rashes or lesions noted and no wounds GENERAL SKIN EXAM: no rashes or lesions noted Course Vital Signs: Vital signs: Vital Signs Temperature 98.2 F 07/09/22 15:44 Pulse Rate 103 H 07/09/22 17:00 Respiratory Rate 37 H 07/09/22 17:00 Blood Pressure 117/90 07/09/22 17:00 Pulse Oximetry 100 07/09/22 17:00 Oxygen Delivery Me thod 07/09/22 16:55 MDM - Abdominal Pain Medical Decision Making Patient comes in with abdominal pain. She describes it as left-sided, constant, sharp, started 2 hours prior to arrival. States this is the worst pain she is ever felt. Patient is tearful throughout exam. Patient has a long history of chronic abdominal pain. She states this is different than her normal abdominal pain. She was seen here 2 months ago for similar complaints with a similar presentation at which time her work-up was unremarkable. The patient states that this is different because it is worse. Denies fever, diarrhea, or vomiting. States she does have nausea. On physical exam her abdomen is soft, nondistended. She has generalized severe tenderness to very light palpation that is distractible. We will check labs, treat pain with IV Toradol, treat nausea with IV Compazine, give IV fluids, give IV Benadryl to prevent akathetic reaction from the Compazine, and reassess. On reassessment I talked to the patient about the test results. Her symptoms have completely resolved. She denies substance abuse, however there is marijuana in her urine. I suspect she either has abdominal migraines and/or cannabis induced gastroparesis. Will discharge home at this time with precautions return for worsening or changing symptoms. Lab Data 07/09/22 16:30 07/09/22 16:30 Labs/Radiology: Laboratory Results WBC 9.1 10^3/uL (4.0-10.0) 07/09/22 16:30 RBC 3.88 10^6/uL (4.1-5.3) L 07/09/22 16:30 Hgb 12.7 g/dL (11.5-15.3) 07/09/22 16:30 Hct 37.2 % (37.0-47.0) 07/09/22 16:30 MCV 95.9 fl (81-99) 07/09/22 16:30 MCH 32.7 pg (28.0-34.0) 07/09/22 16:30 MCHC 34.1 g/dL (30.0-36.0) 07/09/22 16:30 RDW 12.7 % (12.1-15.1) 07/09/22 16:30 Plt Count 320 10^3/cmm (130-400) 07/09/22 16:30 MPV 9.0 fL (7.4-10.4) 07/09/22 16:30 Neut % (Auto) 74.0 % 07/09/22 16:30 Lymph % (Auto) 16.4 % 07/09/22 16:30 [place] % (Auto) 9.2 % 07/09/22 16:30 Eos % (Auto) 0.0 % 07/09/22 16:30 Baso % (Auto) 0.1 % 07/09/22 16:30 Neut # (Auto) 6.75 10^3/uL (1.8-7.7) 07/09/22 16:30 Lymph # (Auto) 1.5 10^3/uL (0.8-4.8) 07/09/22 16:30 [place] # (Auto) 0.8 10^3/uL (0.2-0.9) 07/09/22 16:30 Eos # (Auto) 0.0 10^3/uL (0.0-0.8) 07/09/22 16:30 Baso # (Auto) 0.0 10^3/uL (0.0-0.1) 07/09/22 16:30 Nucleated RBC % (auto) 0 % 07/09/22 16:30 Nucleated RBCs # 0.0 /100WBC 07/09/22 16:30 Sodium 139 mmol/L (136-145) 07/09/22 16:30 Potassium 3.7 mmol/L (3.5-5.1) 07/09/22 16:30 Chloride 104 mmol/L (98-107) 07/09/22 16:30 Carbon Dioxide 21 mmol/L (22-29) L 07/09/22 16:30 Anion Gap 17.7 (5-19) 07/09/22 16:30 BUN 11 mg/dL (6-20) 07/09/22 16:30 Creatinine 0.7 mg/dL (0.5-0.9) 07/09/22 16:30 GFR Calculation 100.4 mL/min (90-130) 07/09/22 16:30 Glucose 114 mg/dL (65-115) 07/09/22 16:30 Calculated Osmolality 288 mOsm/kg (285-295) 07/09/22 16:30 Lactate 1.6 mmol/L (0.5-2.2) 07/09/22 16:30 Calcium 8.9 mg/dL (8.5-10.5) 07/09/22 16:30 Magnesium 2.0 mg/dL (1.7-2.3) 07/09/22 16:30 Total Bilirubin 0.3 mg/dL (0.15-1.2) 07/09/22 16:30 AST 21 U/L (0-32) 07/09/22 16:30 ALT 15 U/L (0-33) 07/09/22 16:30 Alkaline Phosphatase 67 U/L (35-105) 07/09/22 16:30 Total Protein 7.2 g/dL (6.6-8.7) 07/09/22 16:30 Albumin 4.3 g/dL (3.5-5.2) 07/09/22 16:30 Globulin 2.9 g/dL (1.3-4.6) 07/09/22 16:30 Lipase 37 U/L (13-60) 07/09/22 16:30 Urine Color Yellow (Yellow) 07/09/22 17:19 Urine Appearance Clear (CLEAR) 07/09/22 17:19 Urine pH 8 (5-7) H 07/09/22 17:19 Ur Specific [place] 1.015 (1.005-1.030) 07/09/22 17:19 Urine Protein Neg (Negative) 07/09/22 17:19 Urine Glucose (UA) Norm (Normal) 07/09/22 17:19 Urine Ketones Negative (Negative) 07/09/22 17:19 Urine Blood Neg (Negative) 07/09/22 17:19 Urine Nitrate Negative (Negative) 07/09/22 17:19 Urine Bilirubin Neg (Negative) 07/09/22 17:19 Prot Sulfosalicylic Acd Negative (Negative) 07/09/22 17:19 Urine Urobilinogen Norm mg/dL (Negative) 07/09/22 17:19 Ur Leukocyte Esterase Negative (Negative) 07/09/22 17:19 Urine Opiates Screen Negative ng/mL (Negative) 07/09/22 17:19 Ur Barbiturates Screen Negative ng/mL (Negative) 07/09/22 17:19 Ur Phencyclidine Scrn Negative ng/mL (Negative) 07/09/22 17:19 Ur Amphetamines Screen Negative ng/mL (Negative) 07/09/22 17:19 U Benzodiazepines Scrn Negative ng/mL (Negative) 07/09/22 17:19 Urine Cocaine Screen Negative ng/mL (Negative) 07/09/22 17:19 U Marijuana (THC) Screen Positive ng/mL (Negative) H 07/09/22 17:19 Ethyl Alcohol < 10 mg/dL (0-10) 07/09/22 16:30 Discharge Plan Discharge Patient Disposition: Home Clinical Impression: Abdominal pain Condition: Stable Prescriptions: No Action naproxen 500 mg tablet 500 mg PO BID PRN Rx Instructions: USUALLY JUST TAKES AT NOC lorazepam [Ativan] 0.5 mg tablet 0.5 mg PO .1 day PRN gabapentin 600 mg tablet 600 mg PO TID Qty: 90 0RF oxycodone-acetaminophen 5-325 mg tablet 1 tab PO BID MDD 2 PRN (Reason: chronic pain) 30 Days Qty: 20 0RF Rx Instructions: may fill 30 days after previous refill duloxetine 20 mg capsule,delayed release(DR/EC) 20 mg PO BID Qty: 60 0RF senna 8.6 mg tablet 8.6 mg PO BID PRN (Reason: constipation) Qty: 20 0RF Discharge Orders: Discharge ED (Routine); Ordered 07/09/22 Ordered By: Shahram Fritz Patient Instructions: Abdominal Pain (ED) Coding Level of Care Code ED Pricing Director for Benjamin Peters
[2022-07-09 16:56] LABS: Basophils % 0.1 %; Hematocrit 37.2 % (37.0-47.0); Hemoglobin 12.7 g/dL (11.5-15.3); Lymphocytes # 1.5 10^3/uL (0.8-4.8); Lymphocytes % 16.4 %; Mean Corpuscular HGB Conc 34.1 g/dL (30.0-36.0); Mean Corpuscular Hemoglobin 32.7 pg (28.0-34.0); Mean Corpuscular Volume 95.9 fl (81-99); Monocytes # 0.8 10^3/uL (0.2-0.9); Monocytes % 9.2 %; Neutrophils # 6.75 10^3/uL (1.8-7.7); Nucleated Red Blood Cells % 0 %; Platelet Count 320 10^3/cmm (130-400); Red Blood Count 3.88 10^6/uL (4.1-5.3); Red Cell Distribution Width 12.7 % (12.1-15.1); White Blood Count 9.1 10^3/uL (4.0-10.0)
[2022-07-09] MEDS: sodium chloride 0.9% 1,000 ML 999 ML IV (16:56)
[2022-07-09] MEDS: prochlorperazine 10 mg/2 mL Inj IVP (16:57)
[2022-07-09] MEDS: diphenhydrAMINE 50 mg/mL SDV 1mL IVP (16:57)
[2022-07-09] MEDS: ketorolac 30 mg/mL INJ IVP (16:57)
[2022-07-09 17:16] LABS: Alanine Aminotransferase 15 U/L (0-33); Albumin Level 4.3 g/dL (3.5-5.2); Alkaline Phosphatase 67 U/L (35-105); Anion Gap 17.7 (5-19); Aspartate Amino Transferase 21 U/L (0-32); Blood Urea Nitrogen 11 mg/dL (6-20); Calcium 8.9 mg/dL (8.5-10.5); Carbon Dioxide 21 mmol/L (22-29); Chloride 104 mmol/L (98-107); Creatinine Clr Calc Pharmacy 118.8451; Globulin 2.9 g/dL (1.3-4.6); Glomerular Filtration Rate 100.4 mL/min (90-130); Glucose 114 mg/dL (65-115); Lactate (Lactic Acid level) 1.6 mmol/L (0.5-2.2); Lipase 37 U/L (13-60); Osmolality Calculated 288 mOsm/kg (285-295); Potassium 3.7 mmol/L (3.5-5.1); Sodium 139 mmol/L (136-145); Total Bilirubin 0.3 mg/dL (0.15-1.2); Total Protein 7.2 g/dL (6.6-8.7)
[2022-07-09 17:18] LABS: Alcohol Level < 10 mg/dL (0-10)
[2022-07-09 17:28] LABS: Add Urine Microscopic? NO; Charge for UA Resulting for Rev
[2022-07-09 17:32] LABS: Bilirubin Urine Neg (Negative); Blood Urine Neg (Negative); Glucose Urine UA Norm (Normal); Ketones Urine Negative (Negative); Leukocyte Esterase Urine Negative (Negative); Nitrate Urine Negative (Negative); Protein Urine Neg (Negative); Specific Gravity, Urine 1.015 (1.005-1.030); Sulfosalicylic Acid Urine Negative (Negative); Urine Appearance Clear (CLEAR); Urine Color Yellow (Yellow); Urobilinogen Urine Norm (Negative); pH Urine 8 (5-7)
[2022-07-09 17:41] LABS: Amphetamines Screen Urine Negative (Negative); Barbiturates Screen Urine Negative (Negative); Benzodiazepines Screen Urine Negative (Negative); Cocaine Screen Urine Negative (Negative); Opiate Screen Urine Negative (Negative); PCP Screen Urine Negative (Negative); THC Screen Urine Positive (Negative)
--- NOTE | 2022-07-15 13:13 | DCPLANNER ---
fish hatchery manager called patient due to no primary care physician - patient declines
== END 2022-07-09 17:54 | disposition home or self-care (01) ==
PROVIDERS: Emergency Provider Emergency Medicine
DX: R10.9 Unspecified abdominal pain (principal); Z87.891 Personal history of nicotine dependence
CPT/HCPCS: 36415; 80053; 80306; 80307; 81003; 83605; 83690; 83735; 85025; 96374; 96375; 99284; J0780; J1200; J1885; J7030

== ENCOUNTER 2022-10-27 12:00 | Outpatient (CLI) | payer SELFPAY ==
--- NOTE | 2022-10-27 12:11 | XRR_ITS ---
PROCEDURE INFORMATION: Exam: XR Right Ankle Exam date and time: 10/27/2022 12:15 PM Age: 27 years old Clinical indication: Pain; Ankle; Right; Patient HX: --hurt while lifting weights; Additional info: R ankle joint pain TECHNIQUE: Imaging protocol: Radiologic exam of the right ankle. Views: 3 or more views. COMPARISON: No relevant prior studies available. FINDINGS: Bones/joints: No fracture. No dislocation. The ankle mortise is intact. Soft tissues: No acute soft tissue abnormality. XR/XR ankle RT min 3V* [id number] IMPRESSION: No osseous abnormality.
== END 2022-10-27 12:01 | disposition home or self-care (01) ==
LOC: RAD 12:04
PROVIDERS: PCP Family Medicine; Visit Provider Family Medicine
DX: M25.571 Pain in right ankle and joints of right foot (principal); X50.0XXA Overexertion from strenuous movement or load, initial encounter
CPT/HCPCS: 73610

== ENCOUNTER 2022-11-03 10:58 | Outpatient (CLI) | payer SELFPAY ==
--- NOTE | 2022-11-03 11:07 | US_ITS ---
WS: [id number] ULTRASOUND BREAST LEFT TECHNIQUE: Ultrasound left breast focused area of concern. CLINICAL INFORMATION: LUMP/PAIN IN LEFT BREAST COMPARISON: None. FINDINGS: Ultrasound LEFT breast lump, 11:00 5 cm from the nipple. In the area of concern, there is normal unde rlying parenchymal tissue. Small amount of echogenic ill-defined breast tissue in this location likel y represents benign lipomatous change. A discrete focal lipoma or lesion not visualized. Findings hav e a benign appearance. Recommend return for additional assessment if lump increases in size or persis tent concern. Otherwise Recommend annual screening mammography age 40. US/US breast LT limited* [id number] IMPRESSION: BI-RADS 2 benign Annual screening mammography age 40
== END 2022-11-03 10:59 | disposition home or self-care (01) ==
PROVIDERS: PCP Family Medicine; Visit Provider Obstetrics & Gynecology
DX: N64.4 Mastodynia (principal); N63.22 Unspecified lump in the left breast, upper inner quadrant
CPT/HCPCS: 76642

== ENCOUNTER 2023-07-30 10:15 | Outpatient (CLI) | payer SELFPAY ==
--- NOTE | 2023-07-30 10:29 | XR_ITS ---
WS: [id number] PA chest with right rib detail, 5 views, 07/30/2023 Clinical Data: R SIDED RIB PAIN Comparison: Chest and right rib detail 07/07/2022 Findings: The chest shows no acute cardiopulmonary disease. The right ribs show an undisplaced fracture of the posterior lateral aspect of the right sixth rib. T here is periosteal new bone formation. Impression: 1. Negative chest. 2. Undisplaced healing right posterior lateral sixth rib fracture.
== END 2023-07-30 10:16 | disposition home or self-care (01) ==
PROVIDERS: PCP Family Medicine; Visit Provider Family Medicine
DX: R07.81 Pleurodynia (principal)
CPT/HCPCS: 71100

== ENCOUNTER 2023-08-04 11:11 | Emergency (ER) | payer SELFPAY ==
[2023-08-04 11:15] VITALS: BP 125/85; PULSE 76; RESP 16; TEMP 36.7; O2SAT 100
--- NOTE | 2023-08-04 11:27 | XR_ITS ---
WS: [id number] Exam: XR chest 1V portable [id number] Date/Time of Exam: 08/04/2023 11:27 AM Reason For Exam: dyspnea/cough Comparison 07/30/2023. The lungs are clear and fully expanded. Normal cardiomediastinal silhouette. No pleural effusions. He aling right-sided sixth rib fracture again noted. Remaining bony elements are intact. IMPRESSION: 1. No acute cardiopulmonary finding. 2. Healing RIGHT sixth rib fracture.
--- NOTE | 2023-08-04 11:40 | W.ED.GENADLT ---
HPI - General Adult General: Chief complaint: Nausea/Vomiting/Diarrhea Stated complaint: Broken ribs/ N/V sent by Dr Holbrook Time Seen by Provider: 08/04/23 11:26 Source: patient Mode of arrival: ambulatory History of Present Illness: 28-year-old female who presents emergency room Review of Systems Const: Denies: fever(s) or chills GI: Denies: abdominal pain : Denies: dysuria, urinary frequency or urinary urgency Musc: Denies: neck pain or back pain PFSH ED PFSH: Medical History Low bone density Arrhythmia Episodes of tachycardia Celiac disease Surgical History History of laparoscopic-assisted vaginal hysterectomy (06/06/19) With LSO and right salpingectomy, cautery endometriosis, Parson's culdoplasty. Dx: Pelvic & ovarian endometriosis, Dysmenorrhea, LLQ pain, Enterocele. Performed [place]. Ness at [facility] S/P laparoscopy (12/27/18) With cautery of ovarian endometriosis. Dx: Endometrioma of right ovary, Lower abdominal/pelvic pain. Performed [place] Dr. Ness at [facility] [place], [place]. Family History Father Hypertension Heart disease Hypercholesteremia Diabetes Brother Heart disease Grandmother Heart disease maternal Mother Uterine cancer diagnosed at age 60 Social History Smoking and tobacco/nicotine status: former use of tobacco/nicotine Quit status (tobacco/nicotine): has quit using Year quit tobacco: 2016 Alcohol intake: current Alcohol intake frequency: holidays/special occasions only Substance/Drug Use: never Female Reproductive History: Para: 2 Spontaneous abortions: Yes Physical Exam Const: GENERAL APPEARANCE: cooperative and comfortable ORIENTATION/CONSCIOUSNESS: Yes awake, Yes oriented to person, Yes oriented to place and Yes oriented to time HENMT: COMMON NORMALS: normocephalic, atraumatic and hearing grossly normal bilaterally HEAD & SCALP: normocephalic and atraumatic Resp: COMMON NORMALS: normal respiratory effort, No retractions, No use of accessory muscles and clear to auscultation bilaterally AUSCULTATION: clear to auscultation bilaterally Cardio: COMMON NORMALS: regular rate, regular rhythm and No murmurs present (Cardio) RATE: regular rate RHYTHM: regular rhythm GI: COMMON NORMALS: Soft to palpation and No hepatosplenomegaly present AUSCULTATION: Yes normoactive bowel sounds PALPATION: Yes Soft to palpation, No Tenderness to palpation present (GI), No Guarding due to palpation present (GI) and Yes No hepatosplenomegaly present Extremity: COMMON NORMALS: normal to inspection, capillary refill normal, no clubbing, cyanosis or edema, no calf tenderness and no pedal edema Neuro: SENSORIUM/ORIENTATION: Yes oriented to person, Yes oriented to place and Yes oriented to time Skin: COMMON NORMALS: no rashes or lesions noted GENERAL SKIN EXAM: no rashes or lesions noted Course Vital Signs: Vital signs: Vital Signs Temperature 98.1 F 08/04/23 11:15 Pulse Rate 76 08/04/23 11:15 Respiratory Rate 16 08/04/23 11:15 Blood Pressure 125/85 08/04/23 11:15 Pulse Oximetry 100 08/04/23 11:15 Oxygen Delivery Me thod Room Air 08/04/23 11:15 MDM - General Adult Medical Decision Making Healing rib fracture no sign of acute pathology. The lab work shows stable hemoglobin BUN is not elevated she has not had any symptoms or vomiting while she was here recommend bland diet avoid NSAIDs start omeprazole twice daily for 10 days then once daily after that Zofran as needed for pain recheck if not improving Medical Records I reviewed the patient's medical records. Lab Data I reviewed the patient's lab results. 08/04/23 11:51 08/04/23 11:51 Laboratory Results WBC 6.26 10^3/uL (3.29-11.43) 08/04/23 11:51 RBC 3.85 10^6/uL (3.85-5.65) 08/04/23 11:51 Hgb 12.10 g/dL (11.27-16.99) 08/04/23 11:51 Hct 36.2 % (36-47) 08/04/23 11:51 MCV 94.0 fl (85-98) 08/04/23 11:51 MCH 31.4 pg (27-33) 08/04/23 11:51 MCHC 33.4 g/dL (30-55) 08/04/23 11:51 RDW 12.1 % (12.1-15.1) 08/04/23 11:51 Plt Count 304 10^3/cmm (157-399) 08/04/23 11:51 MPV 9.6 fL (7.4-10.4) 08/04/23 11:51 Neut % (Auto) 71.9 % 08/04/23 11:51 Lymph % (Auto) 21.6 % 08/04/23 11:51 [place] % (Auto) 5.9 % 08/04/23 11:51 Eos % (Auto) 0.0 % 08/04/23 11:51 Baso % (Auto) 0.3 % 08/04/23 11:51 Neut # (Auto) 4.50 10^3/uL (1.8-7.7) 08/04/23 11:51 Lymph # (Auto) 1.4 10^3/uL (0.8-4.8) 08/04/23 11:51 [place] # (Auto) 0.4 10^3/uL (0.2-0.9) 08/04/23 11:51 Eos # (Auto) 0.0 10^3/uL (0.0-0.8) 08/04/23 11:51 Baso # (Auto) 0.0 10^3/uL (0.0-0.1) 08/04/23 11:51 Nucleated RBC % (auto) 0 % 08/04/23 11:51 Nucleated RBCs # 0.0 /100WBC 08/04/23 11:51 PT 13.30 SECONDS (12.1-14.9) 08/04/23 11:51 INR 0.98 (0.8-1.2) 08/04/23 11:51 APTT 28.0 SECONDS (23.9-36.7) 08/04/23 11:51 Sodium 140 mmol/L (136-145) 08/04/23 11:51 Potassium 3.6 mmol/L (3.5-5.1) 08/04/23 11:51 Chloride 105 mmol/L (98-107) 08/04/23 11:51 Carbon Dioxide 25 mmol/L (22-29) 08/04/23 11:51 Anion Gap 13.6 (5-19) 08/04/23 11:51 BUN 7 mg/dL (6-20) 08/04/23 11:51 Creatinine 0.8 mg/dL (0.5-0.9) 08/04/23 11:51 GFR Calculation 85.4 mL/min (90-130) L 08/04/23 11:51 Glucose 96 mg/dL (65-115) 08/04/23 11:51 Calculated Osmolality 288 mOsm/kg (285-295) 08/04/23 11:51 Calcium 9.3 mg/dL (8.5-10.5) 08/04/23 11:51 Total Bilirubin 0.4 mg/dL (0.15-1.2) 08/04/23 11:51 AST 14 U/L (0-32) 08/04/23 11:51 ALT 9 U/L (0-33) 08/04/23 11:51 Alkaline Phosphatase 57 U/L (35-105) 08/04/23 11:51 Total Protein 7.4 g/dL (6.6-8.7) 08/04/23 11:51 Albumin 4.7 g/dL (3.5-5.2) 08/04/23 11:51 Globulin 2.7 g/dL (1.3-4.6) 08/04/23 11:51 HCG, Qual Negative (Negative) 08/04/23 11:51 Urine Color Yellow (Yellow) 08/04/23 11:43 Urine Appearance Sl hazy (CLEAR) A 08/04/23 11:43 Urine pH 5 (5-7) 08/04/23 11:43 Ur Specific [place] 1.020 (1.005-1.030) 08/04/23 11:43 Urine Protein Neg (Negative) 08/04/23 11:43 Urine Glucose (UA) Norm (Normal) 08/04/23 11:43 Urine Ketones 1+ (Negative) H 08/04/23 11:43 Urine Blood 3+ (Negative) H 08/04/23 11:43 Urine Nitrate Negative (Negative) 08/04/23 11:43 Urine Bilirubin 1+ (Negative) H 08/04/23 11:43 Urine Urobilinogen Norm mg/dL (Negative) 08/04/23 11:43 Ur Leukocyte Esterase Trace (Negative) H 08/04/23 11:43 Urine RBC 5-10 /hpf (0-2) H 08/04/23 11:43 Urine WBC 0-4 /hpf (0-5) H 08/04/23 11:43 Ur Squamous Epith Cells 0-4 /hpf (0-5) H 08/04/23 11:43 Calcium Oxalate Crystal 5-10 mono /hpf 08/04/23 11:43 Amorphous Sediment Not Reportable 08/04/23 11:43 Urine Bacteria Trace /hpf (NONE) 08/04/23 11:43 Urine Mucus 2+ /hpf 08/04/23 11:43 All radiology interpretation(s) finalized by discharge Discharge Plan Discharge Patient Disposition: Home Clinical Impression: N&V (nausea and vomiting), Fracture of rib Condition: Stable Prescriptions: New ondansetron HCl 4 mg tablet 4 mg PO Q6H PRN (Reason: nausea and vomiting) Qty: 20 0RF omeprazole 20 mg capsule,delayed release(DR/EC) 20 mg PO BID 30 Days Qty: 60 0RF Rx Instructions: 1 tablet twice daily for 10 days then once daily No Action naproxen 250 mg Tablet 250 mg PO QAM Discharge Orders: Discharge ED (Routine); Ordered 08/04/23 Ordered By: Bradley Good Referrals: Natalia Holbrook DO [Primary Care Provider] - Discharge Diet: As Directed Discharge Activity: Increase activity as tolerated Patient Instructions: Diet for Stomach Ulcers and Gastritis (ED), Acute Nausea and Vomiting (ED), Opioid Safety, Pain Management Activity Restrictions/Additional Instructions: Thank you for choosing [facility] for your healthcare needs today. Please realize this is an emergency room and that we are providing you with a medical screening exam and this may not be complete and all inclusive of all the testing and or work up that you may need to determine your ailment or severity of your illness. It is very important that you follow up as instructed or that you return to the Emergency Department should you have concerns or if your condition changes or worsens in any way. You are seen today for persistent nausea and vomiting. Labs did not show any evidence of active bleeding your hemoglobin is stable. Recommend you start omeprazole 1 tablet twice daily for 10 days and 1 tablet twice daily. Follow-up with your primary care doctor if not improving use the ondansetron as needed for pain. 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
[2023-08-04 12:05] LABS: Basophils % 0.3 %; Hematocrit 36.2 % (36-47); Lymphocytes # 1.4 10^3/uL (0.8-4.8); Lymphocytes % 21.6 %; Mean Corpuscular HGB Conc 33.4 g/dL (30-55); Mean Corpuscular Hemoglobin 31.4 pg (27-33); Mean Platelet Volume 9.6 fL (7.4-10.4); Monocytes # 0.4 10^3/uL (0.2-0.9); Monocytes % 5.9 %; Neutrophils % 71.9 %; Nucleated Red Blood Cells % 0 %; Platelet Count 304 10^3/cmm (157-399); Red Blood Count 3.85 10^6/uL (3.85-5.65); Red Cell Distribution Width 12.1 % (12.1-15.1); White Blood Count 6.26 10^3/uL (3.29-11.43)
[2023-08-04 12:11] LABS: INR 0.98 (0.8-1.2)
[2023-08-04 12:18] LABS: HCG, Serum Qual Negative (Negative)
[2023-08-04 12:22] LABS: Urine Appearance SL Hazy (CLEAR); Urine Color Yellow (Yellow); pH Urine 5 (5-7)
[2023-08-04 12:23] LABS: Add Urine Microscopic? YES; Bilirubin Urine 1+ (Negative); Blood Urine 3+ (Negative); Glucose Urine UA Norm (Normal); Ketones Urine 1+ (Negative); Leukocyte Esterase Urine Trace (Negative); Nitrate Urine Negative (Negative); Protein Urine Neg (Negative); Urobilinogen Urine Norm (Negative)
[2023-08-04 12:26] LABS: Alanine Aminotransferase 9 U/L (0-33); Albumin Level 4.7 g/dL (3.5-5.2); Alkaline Phosphatase 57 U/L (35-105); Anion Gap 13.6 (5-19); Aspartate Amino Transferase 14 U/L (0-32); Blood Urea Nitrogen 7 mg/dL (6-20); Calcium 9.3 mg/dL (8.5-10.5); Carbon Dioxide 25 mmol/L (22-29); Chloride 105 mmol/L (98-107); Creatinine Clr Calc Pharmacy 98.8712; Globulin 2.7 g/dL (1.3-4.6); Glomerular Filtration Rate 85.4 mL/min (90-130); Glucose 96 mg/dL (65-115); Osmolality Calculated 288 mOsm/kg (285-295); Potassium 3.6 mmol/L (3.5-5.1); Sodium 140 mmol/L (136-145); Total Bilirubin 0.4 mg/dL (0.15-1.2); Total Protein 7.4 g/dL (6.6-8.7)
[2023-08-04 12:26] LABS: Add Urine Culture? No; Bacteria Urine TRACE /hpf; Calcium Oxalate Crystals Urine 5-10 MONO /hpf; Mucus Urine 2+ /hpf; Squamous Epithelial Cell Urine 0-4 /hpf (0-5); WBC Urine 0-4 /hpf (0-5)
== END 2023-08-04 13:11 | disposition home or self-care (01) ==
PROVIDERS: Emergency Provider Family Medicine; PCP Family Medicine
DX: R11.2 Nausea with vomiting, unspecified (principal); S22.31XA Fracture of one rib, right side, initial encounter for closed fracture; Z87.891 Personal history of nicotine dependence; X58.XXXA Exposure to other specified factors, initial encounter
CPT/HCPCS: 71045; 80053; 81001; 84703; 85025; 85610; 85730; 99284

== ENCOUNTER → 2023-12-16 11:27 | Outpatient (BNVA) | payer SELFPAY | PROVIDERS: PCP Family Medicine; Visit Provider Registered Nurse Neonatal Intensive Care | DX: M79.671 Pain in right foot (principal) | CPT/HCPCS: 73630 ==

== ENCOUNTER 2024-04-20 12:04 | Outpatient (CLI) | payer BC, MEDICAID, SELFPAY ==
--- NOTE | 2024-04-20 12:17 | XRR_ITS ---
PROCEDURE INFORMATION: Exam: XR Right Hand Exam date and time: 04/20/2024 12:23 PM Age: 29 years old Clinical indication: Finger(s); Right; Patient HX: X1 month knot on medial side of proximal 1st digit, pain when touched, knot has gotten bigger; Additional info: Right thumb pain TECHNIQUE: Imaging protocol: Radiologic exam of the right hand. Views: 3 or more views. COMPARISON: CR XR wrist RT min 3V* [id number] 04/14/2019 4:25 PM FINDINGS: Bones/joints: Normal. Soft tissues: Normal. XR/XR hand RT min 3V* [id number] IMPRESSION: No acute findings.
== END 2024-04-20 12:05 | disposition home or self-care (01) ==
LOC: RAD 12:08
PROVIDERS: PCP Family Medicine; Visit Provider Family Medicine
DX: M79.644 Pain in right finger(s) (principal)
CPT/HCPCS: 73130

== ENCOUNTER → 2024-05-11 15:09 | Outpatient (BNVA) | payer BC, MEDICAID, SELFPAY | PROVIDERS: PCP Family Medicine; Visit Provider Physician Assistant | DX: M79.644 Pain in right finger(s) (principal); M65.311 Trigger thumb, right thumb | CPT/HCPCS: 73130 ==

== ENCOUNTER 2024-06-27 15:38 | Outpatient (CLI) | payer BC, MEDICAID, SELFPAY ==
--- NOTE | 2024-06-27 15:15 | MR_ITS ---
WS: [id number] MRI RIGHT HAND WITHOUT CONTRAST. COMPARISON: Radiograph 05/11/2024 Multiplanar, multisequence imaging is performed without contrast. History: Thumb pain, locking at the IP joint. Normal alignment of the first metacarpal phalangeal joint and IP joint. There is no marrow edema or subluxation or displacement. Flexor tendon of the first phalanx is slightly displaced from the volar surface of the proximal phalanx. Seen best on the axial imaging is a change in caliber of the flexor tendon as it approaches the IP joint. There is also abnormal signal within the tendon over a short distance. There is mild separation from the volar plate indicating a philly injury. Collateral ligaments appear intact. MR/MR hand RT wo con* [id number] IMPRESSION: 1. No fracture or marrow edema. No subluxation at the first IP joint. 2. Mild separation of the flexor tendon from the first phalanx near the IP billy nt consistent with a philly injury. The tendon is also very thinned with increa sed T2 signal consistent with a partial tear. 3. No joint effusion. No complete tear. 4. Collateral ligaments are intact.
== END 2024-06-27 15:39 | disposition home or self-care (01) ==
PROVIDERS: PCP Family Medicine; Visit Provider Student in an Organized Health Care Education/Training Program
DX: M65.311 Trigger thumb, right thumb (principal); R93.6 Abnormal findings on diagnostic imaging of limbs
CPT/HCPCS: 73218

== ENCOUNTER 2025-02-05 09:33 | Outpatient (CLI) | payer BC, MEDICAID, SELFPAY ==
--- NOTE | 2025-02-05 09:37 | XRR_ITS ---
PROCEDURE INFORMATION: Exam: XR Chest Exam date and time: 02/05/2025 9:43 AM Age: 29 years old Clinical indication: Cough and shortness of breath; Additional info: Cough/acute bronchitis TECHNIQUE: Imaging protocol: Radiologic exam of the chest. Views: 2 views. COMPARISON: CR XR chest 1V portable [id number] 08/04/2023 11:32 AM FINDINGS: Lungs: Unremarkable. No consolidation. Pleural spaces: Unremarkable. No pleural effusion. No pneumothorax. Heart/Mediastinum: Unremarkable. No cardiomegaly. Bones/joints: Unremarkable. XR/XR chest 2V* [id number] IMPRESSION: No acute findings.
== END 2025-02-05 09:34 | disposition home or self-care (01) ==
PROVIDERS: PCP Family Medicine; Visit Provider Nurse Practitioner Family
DX: R05.8 Other specified cough (principal); R06.02 Shortness of breath
CPT/HCPCS: 71046